=== PATIENT | female | born 1940 | race Caucasian/White ===

== ENCOUNTER 2025-07-31 09:21 | Inpatient (IN) ==
--- NOTE | 2025-07-31 09:24 | Emergency Department Note ---
Impression & Plan Narrow complex tachycardia, Hypomagnesemia, Recurrent left pleural effusion, Hypocalcemia, Hypoxia ED Provider Note NAME: DASHA WHITFIELD AGE: 85 SEX: F : 1940 ARRIVES VIA: Ambulance INFORMANT: Patient, ED PROVIDER(S): Ramos Busch MD CHIEF COMPLAINT: Outpatient referral, low calcium MEDICAL DECISION MAKING: Patient presents for the above. Patient with a narrow complex tachycardia noted. Patient is hypotensive but is awake alert following commands. Reportedly critically low calcium. Did attempt to obtain the records. I also did send the patient's EKG to the on-call leather roller Dr. Manning for review and discussion especially in light of the patient's lower calcium. I did speak with the leather roller Dr. Kerri Red who did recommend 2.5 Lopressor in addition to the calcium and IV fluids. Patient's blood work shows a normal white count hemoglobin of 10.9 with a normal platelet count. The patient's kidney function is unremarkable. Initial potassium of 3.4. Patient's calcium is low at 6.3. The patient was ordered 3 g of calcium gluconate. Magnesium low 0.6. She was ordered 2 g IV. The patient never actually received the Lopressor but did have improvement in the patient's tachycardia repeat EKG was ordered which showed the patient was in a sinus tachycardia in the low 100s. Patient did receive the IV fluids. Chest x-ray does show left-sided pleural effusion. I did discuss this with the patient and the patient's at bedside he states that this is a chronic issue and last had it drained head is pending having it drained at [facility] in several weeks. I did attempt a bedside ultrasound. Poor views obtained no obvious pericardial effusion but the patient did have B-lines in the left lung field. I subsequently did speak the on-call hospital service and the patient was admitted to the medicine service by Dr. Pacheco inpatient medicine service. Critical Care: I have personally spent 65 minutes of critical care time in direct management of this patient. This includes bedside care, interpretation of diagnostic studies, and testing, discussion with consultants, patient, and family members, and other require inpatient management activities. This 65 minutes is in excess of all separately billable procedures. Discussion w/ other healthcare providers: Dr. Manning cardiology [facility] Dr. Pacheco inpatient medicine service Prior /Outside records reviewed: None Differential diagnosis: Premature contractions, electrolyte abnormality, cardiac dysrhythmia, thyroid dysfunction, infection, toxicologic, anxiety among others were considered. Diagnostics, as interpreted by me: ECG: [Narrow complex tachycardia PVC noted, appears monomorphic and regular could be A-fib versus atrial flutter. Ventricular rate of 180. Normal QRS duration within normal axis. Normal QTc Cardiac monitoring: An order was placed for continuous cardiac monitoring. The monitor shows a rate of 182 with tachycardic and regular rhythm. Patient was placed on pulse oximetry Medical decision rules: None Imaging studies: I informally interpreted the patient's chest x-ray shows left-sided pleural effusion with formal report to follow. HPI: Patient presents as a referral due to concern for critically low calcium. The patient states that she was sleeping they were called by the doctor and they were referred to come to the emergency department. Patient denies any chest pains or shortness of breath reportedly does have cough that has been nonproductive. Patient currently denies any symptoms no nausea vomiting or diarrhea no dizziness or lightheadedness no chest pains or shortness of breath. The patient denies feeling palpitations and denies any history of A-fib. PAST MEDICAL HISTORY: See Below PAST SURGICAL HISTORY: See Below SOCIAL HISTORY: See Below HOME MEDICATIONS: See Below ALLERGIES: See Below VITALS: See Below PHYSICAL EXAMINATION: GENERAL: NAD, non-toxic. EYE EXAM: Normal conjunctiva. PERRL, no anisocoria and EOM's grossly intact w/o pain. OROPHARYNX: Moist mucus membranes, grossly normal dentition. NECK: Trachea midline, no stridor. Supple, no nuchal rigidity, no adenopathy, non-tender. No signs of meningismus. FROM of the neck with good chin to chest and neck extension. LUNGS: Rhonchi in the right chest. Normal chest wall mechanics. HEART: Tachycardic and regular, no MRG. ABDOMEN: Abdomen soft, non-tender, no masses, no rebound or guarding. BACK: No CVA TTP. SKIN: No rashes and no bruising. UPPER EXTREMITIES: Upper extremities are grossly normal. LOWER EXTREMITIES: Grossly normal, no edema. NEURO EXAM: Awake and alert, follows commands, no obvious facial asymmetry, normal speech, moves all 4 extremities. Past Med/Surg History Problem List (Updated 07/31/25 @ 16:31 by Ramos Busch MD) Hypoxia (Acute) Narrow complex tachycardia (Acute) Recurrent left pleural effusion (Acute) Hypomagnesemia (Acute) SVT (supraventricular tachycardia) Hypocalcemia (Acute) Medical History GERD (gastroesophageal reflux disease) Surgical History History of lysis of adhesions (2007) Hx of section (1976) Hx of exploratory laparotomy (1976) Hx of appendectomy (1950) Social History Smoking Status: Former smoker Tobacco Type: Declines Second Hand Exposure: No; Do You Dip or Chew Tobacco: No; Hx Alcohol Use: No Hx Substance Use: No Preferred Language: Faroese Communication Ability: Effective Associate Professor Of Anthropology Required: No Beliefs That Will Affect Care: None Current Living Situation: Spouse Feels Safe at Home: Yes Assistive Devices: Denture - Upper and Denture - Lower Allergies Allergies Allergy/AdvReac Type Severity Reaction Status Date / Time No Known Allergies Allergy Unknown Verified 08/02/24 14:19 Home Meds Home Medications Medication Instructions Recorded Confirmed omeprazole 20 mg capsule,delayed 40 mg PO BID 07/26/24 07/31/25 release sucralfate 1 gram tablet 0 g PO ACHS 08/02/24 07/31/25 amlodipine 5 mg tablet 5 mg PO DAILY 07/31/25 07/31/25 atorvastatin 40 mg tablet 40 mg PO DAILY 07/31/25 07/31/25 ferrous sulfate 325 mg (65 mg 325 mg PO .Q OTHER DAY 07/31/25 07/31/25 iron) tablet (FeroSul) mirtazapine 15 mg tablet 15 mg PO DAILY 07/31/25 07/31/25 Results & Data (ED) Vital Signs Vital Signs - 24 hr 07/31/25 09:42 07/31/25 09:47 07/31/25 09:58 Temperature 36.4 C L Temperature Source Oral Pulse Rate 180 H 181 H Pulse Rate [Finger] Pulse Rate from SpO2 Sensor 180 H Respiratory Rate 27 H 16 Respiratory Effort / Characteristics Non-Labored Respiratory Depth Normal Respiratory Pattern Regular Blood Pressure 122/89 87/70 L 91/78 L Blood Pressure [Right Arm] Blood Pressure Mean 100 75 86 Blood Pressure Mean [Right Arm] Pulse Oximetry 94 89 L Oxygen Delivery Method Nasal Cannula Room Air Oxygen Flow Rate 2 Sepsis Recent Fever Within 48 Hours No Sepsis New/Unexplained Change in Mental Status N/A Sepsis Action Taken by Nursing Physician Notified 07/31/25 10:00 07/31/25 10:02 07/31/25 10:03 Temperature Temperature Source Pulse Rate 179 H 180 H Pulse Rate [Finger] Pulse Rate from SpO2 Sensor 178 H 157 H Respiratory Rate 29 H 22 Respiratory Effort / Characteristics Respiratory Depth Respiratory Pattern Blood Pressure 68/51 L 58/40 L 92/49 L Blood Pressure [Right Arm] Blood Pressure Mean 56 48 63 Blood Pressure Mean [Right Arm] Pulse Oximetry 95 93 Oxygen Delivery Method Nasal Cannula Nasal Cannula Oxygen Flow Rate 2 2 Sepsis Recent Fever Within 48 Hours Sepsis New/Unexplained Change in Mental Status Sepsis Action Taken by Nursing 07/31/25 10:06 07/31/25 10:08 07/31/25 10:24 Temperature Temperature Source Pulse Rate 110 H Pulse Rate [Finger] Pulse Rate from SpO2 Sensor Respiratory Rate Respiratory Effort / Characteristics Respiratory Depth Respiratory Pattern Blood Pressure 80/51 L 105/69 105/69 Blood Pressure [Right Arm] Blood Pressure Mean 55 84 Blood Pressure Mean [Right Arm] Pulse Oximetry Oxygen Delivery Method Oxygen Flow Rate Sepsis Recent Fever Within 48 Hours Sepsis New/Unexplained Change in Mental Status Sepsis Action Taken by Nursing 07/31/25 10:27 07/31/25 10:33 07/31/25 12:00 Temperature Temperature Source Pulse Rate 113 H 179 H Pulse Rate [Finger] 86 Pulse Rate from SpO2 Sensor 103 H Respiratory Rate 29 H 18 Respiratory Effort / Characteristics Respiratory Depth Respiratory Pattern Blood Pressure 120/80 Blood Pressure [Right Arm] 103/62 Blood Pressure Mean 93 Blood Pressure Mean [Right Arm] 75 Pulse Oximetry 96 95 Oxygen Delivery Method Nasal Cannula Nasal Cannula Oxygen Flow Rate 2 2 Sepsis Recent Fever Within 48 Hours Sepsis New/Unexplained Change in Mental Status Sepsis Action Taken by [facility] Medications Current Medication List: was personally reviewed by me Laboratory Data Attestation: I reviewed the patient's lab results. 07/31/25 09:33 07/31/25 14:26 Lab Results 07/31/25 07/31/25 07/31/25 Range/Units 09:33 09:39 09:40 WBC 10.11 (4.8-10.8) K/ul RBC 4.30 (4.20-5.40) M/uL Hgb 10.9 L (12.0-16.0) g/dl POC Hgb 11.9 L (12.0-16.0) g/dl Hct 34.2 L (37.0-47.0) % POC Hct 35 L (37-47) % MCV 79.5 L (80.0-100.0) fL MCH 25.3 (25.0-34.0) pg MCHC 31.9 L (32.0-36.0) g/dL RDW Std Deviation 52.7 H (36.4-46.3) fL RDW Coeff of Nico 18.6 H (11.5-14.5) % Plt Count 271 (130-400) K/uL MPV 12.4 (9.4-12.4) fL Immature Gran % (Auto) 0.3 % Neut % (Auto) 50.7 % Lymph % (Auto) 37.0 % [place] % (Auto) 4.9 % Eos % (Auto) 6.7 % Baso % (Auto) 0.4 % Neut # (Auto) 5.12 (1.40-6.50) K/uL Lymph # (Auto) 3.74 H (1.20-3.40) K/uL [place] # (Auto) 0.50 (0.11-0.59) K/uL Eos # (Auto) 0.68 H (0.00-0.50) K/uL Baso # (Auto) 0.04 (0.00-0.20) K/uL Immature Gran # (Auto) 0.03 (0.01-0.20) K/uL PT 13.0 H (9.0-12.0) Seconds INR 1.2 H (0.9-1.1) APTT 31 (21-31) Seconds PTT Ratio 1.1 POC Sodium 141 (135-144) mmol/L Sodium 141 (136-145) mmol/L POC Potassium 3.2 L (3.3-5.0) mmol/L Potassium 3.4 L (3.5-5.1) mmol/L POC Chloride 103 (101-112) mmol/L Chloride 102 (98-107) mmol/L Carbon Dioxide 25 (21-32) mmol/L POC Total CO2 22 L (24-31) mmol/L Anion Gap 14 H (3-11) POC Anion Gap 20.0 (16-25) mmol/L POC BUN 17 (7-18) mg/dl BUN 17 (6-23) mg/dl Creatinine 1.30 H (0.6-1.2) mg/dl POC Creatinine 1.5 H (0.6-1.3) mg/dl Est Cr Clr Drug Dosing 26.2 ml/min eGFR 40.05 BUN/Creatinine Ratio 13.1 (10-20) Glucose 160 H (70-99(Fasting)) mg/dl POC Glucose (other) 161 H (70-99) mg/dl Calcium 6.3 L (8.6-10.3) mg/dl POC Ioniz Calcium Tiffany 0.66 L* (1.12-1.32) mmol/l Ionized Calcium 0.68 L* (1.12-1.32) mmol/L Phosphorus 3.8 (2.5-4.9) mg/dl Magnesium 0.6 L* (1.7-2.4) mg/dl Total Bilirubin 0.7 (0.2-1.0) mg/dl AST 19 (13-39) U/L ALT 6 L (7-52) U/L Alkaline Phosphatase 121 H (34-104) U/L Troponin I High Sens 13.4 (0-14) pg/ml Total Protein 7.6 (6.0-8.3) gm/dl Albumin 3.4 (3.4-5.0) gm/dl Globulin 4.2 H (2.5-4.0) gm/dl Albumin/Globulin Ratio 0.8 L (0.9-2) TSH 12.323 H (0.300-4.500) uIu/ml Free T4 1.27 (0.61-1.60) ng/dl Adenovirus (PCR) Not Detected (NotDetected) B. pertussis DNA (PCR) Not Detected (NotDetected) B.parapertussis DNA PCR Not Detected (NotDetected) C. pneumoniae DNA (PCR) Not Detected (NotDetected) Coronavirus OC43 (PCR) Not Detected (NotDetected) Coronavirus HKU1 (PCR) Not Detected (NotDetected) Coronavirus 229E (PCR) Not Detected (NotDetected) SARS-CoV-2 (PCR) Not Detected (NotDetected) Coronavirus NL63 (PCR) Not Detected (NotDetected) Human Metapneumovir PCR Not Detected (NotDetected) Influenza Type A (PCR) Not Detected (NotDetected) Influenza Type B (PCR) Not Detected (NotDetected) M. pneumoniae (PCR) Not Detected (NotDetected) Parainfluenza 1 (PCR) Not Detected (NotDetected) Parainfluenza 2 (PCR) Not Detected (NotDetected) Parainfluenza 3 (PCR) Not Detected (NotDetected) Parainfluenza 4 (PCR) Not Detected (NotDetected) RSV (PCR) Not Detected (NotDetected) Entero/Rhino (PCR) Not Detected (NotDetected) Administered Medications Calcium Carbonate (Calcium Carbonate 500 Mg Chewable Tab) 1,000 mg PO BID [facility] Stop: 08/30/25 12:14 Last Admin: 07/31/25 13:09 Dose: 1,000 mg Documented By: BEAR RIVER Ferrous Sulfate (Ferrous Sulfate 325 Mg Tab) 325 mg PO Q2D@0900 CHENTE Stop: 08/30/25 14:44 Last Admin: 07/31/25 15:19 Dose: 325 mg Documented By: emily Multivitamins/Minerals (Cerovite Adv Formula Tab) 1 tab PO QAM CHENTE Stop: 08/30/25 12:14 Last Admin: 07/31/25 13:10 Dose: 1 tab Documented By: BEAR RIVER Discontinued Medications Calcium Gluconate () 1,000 mg in 60 mls @ 240 mls/hr IV NOW STA Stop: 07/31/25 10:00 Last Infusion: 07/31/25 10:44 Dose: Infused Documented By: emily Admin: 07/31/25 10:25 Dose: 240 mls/hr Documented By: emily Calcium Gluconate () 1,000 mg in 60 mls @ 240 mls/hr IV Q15M CHENTE Stop: 07/31/25 10:29 Last Infusion: 07/31/25 10:54 Dose: Infused Documented By: emily Admin: 07/31/25 10:34 Dose: 240 mls/hr Documented By: emily Infusion: 07/31/25 10:34 Dose: Infused Documented By: emily Admin: 07/31/25 10:31 Dose: 240 mls/hr Documented By: emily Sodium Chloride (Nss) 500 mls @ 999 mls/hr IV .Q31M ONE Stop: 07/31/25 10:16 Last Infusion: 07/31/25 11:42 Dose: Infused Documented By: emily Admin: 07/31/25 10:04 Dose: 999 mls/hr Documented By: emily Magnesium Sulfate/Dextrose (Magnesium Sulfate / D5w) 1 gm in 100 mls @ 200 mls/hr IV Q30M CHENTE Stop: 07/31/25 11:16 Last Infusion: 07/31/25 12:19 Dose: Infused Documented By: emily Admin: 07/31/25 11:48 Dose: 200 mls/hr Documented By: emily Infusion: 07/31/25 11:42 Dose: Infused Documented By: emily Admin: 07/31/25 10:31 Dose: 200 mls/hr Documented By: emily Metoprolol Tartrate (Metoprolol Tartrate 1 Mg/Ml Vial) 2.5 mg IV NOW STA Stop: 07/31/25 09:47 Last Admin: 07/31/25 10:24 Dose: Not Given Documented By: emily Metoprolol Tartrate (Metoprolol Tartrate 25 Mg Tab) 12.5 mg PO ONE ONE Stop: 07/31/25 14:46 Last Admin: 07/31/25 15:19 Dose: 12.5 mg Documented By: emily Potassium Chloride (Potassium Chloride Crtab 20 Meq Tabcr) 40 meq PO NOW STA Stop: 07/31/25 12:10 Last Admin: 07/31/25 13:11 Dose: 40 meq Documented By: BEAR RIVER Imaging Data Radiologist's Impression: Chest X-Ray 07/31/25 09:36 XR chest 1V portable CLINICAL HISTORY: eval for cough COMPARISON STUDY: 03/29/2025 FINDINGS: There is stable cardiomegaly with mild pulmonary vascular congestion. There is a moderate to large left pleural effusion and associated consolidation at the left lower lung, increased. Right lung remains well aerated. No pneumothorax. IMPRESSION: Increased left pleural effusion and left pulmonary consolidation. ACT 112: Negative or not required by law. Electronically signed by: Tiago Vyas M.D. 07/31/2025 10:00 AM Discharge Plan Visit Data Chief Complaint: Abnormal Labs/Diagnostic Testing Stated Complaint: Abnormal Labs/Diagnostic Testing ED Provider: Ramos Busch Discharge Problem: Narrow complex tachycardia, Hypomagnesemia, Recurrent left pleural effusion, Hypocalcemia, Hypoxia Patient Disposition: Admitted As Inpatient Condition: Good Discharge Instructions Interventions: ED Discharge Assessment Last Done: 07/31/25 14:26
[2025-07-31 09:53] LABS: Hematocrit (blood only) 34.2 % (37.0-47.0); Hemoglobin 10.9 g/dl (12.0-16.0); Immature Granulocytes # (auto) 0.03 K/uL (0.01-0.20); Immature Granulocytes % (auto) 0.3 %; Mean Corpuscular Hemoglobin 25.3 pg (25.0-34.0); Mean Corpuscular Volume 79.5 fL (80.0-100.0); Platelet Count 271 K/uL (130-400); RDW Standard Deviation 52.7 fL (36.4-46.3); Red Blood Count 4.30 M/uL (4.20-5.40); White Blood Count 10.11 K/ul (4.8-10.8)
[2025-07-31] MEDS: METOPROLOL TARTRATE 1 MG/ML VIAL IV STA (09:57)
--- NOTE | 2025-07-31 10:03 | XRay Report ---
XR chest 1V portable CLINICAL HISTORY: eval for cough COMPARISON STUDY: 03/29/2025 FINDINGS: There is stable cardiomegaly with mild pulmonary vascular congestion. There is a moderate t o large left pleural effusion and associated consolidation at the left lower lung, increased. Right l lona remains well aerated. No pneumothorax. IMPRESSION: Increased left pleural effusion and left pulmonary consolidation. ACT 112: Negative or not required by law. Electronically signed by: Tiago Vyas M.D. 07/31/2025 10:00 AM
[2025-07-31] MEDS: SODIUM CHLORIDE 0.9% 500 ML IV ONE (10:04)
[2025-07-31 10:09] LABS: Anion Gap 14.0 (3-11); Blood Urea Nitrogen 17.0 mg/dl (6-23); Calcium 6.3 mg/dl (8.6-10.3); Carbon Dioxide 25.0 mmol/L (21-32); Chloride 102.0 mmol/L (98-107); Creatinine Clr Calc Pharmacy 26.2 ml/min; Glucose 160.0 mg/dl (70-99(Fasting)); Potassium 3.4 mmol/L (3.5-5.1); Sodium 141.0 mmol/L (136-145)
[2025-07-31 10:16] LABS: Alanine Aminotransferase 6.0 U/L (7-52); Albumin Globulin Ratio 0.8 (0.9-2); Albumin Level 3.4 gm/dl (3.4-5.0); Alkaline Phosphatase 121.0 U/L (34-104); Bilirubin,Total 0.7 mg/dl (0.2-1.0); Globulin 4.2 gm/dl (2.5-4.0); Magnesium 0.6 mg/dl (1.7-2.4); Total Protein 7.6 gm/dl (6.0-8.3)
[2025-07-31 10:24] LABS: INR 1.2 (0.9-1.1); Partial Thromboplastin Time 31 Seconds (21-31); Prothrombin Time 13.0 Seconds (9.0-12.0)
[2025-07-31 10:25] LABS: Thyroid Stimulating Hormone 12.323 uIu/ml (0.300-4.500)
[2025-07-31] MEDS: CALCIUM GLUCONATE 1,000 MG/60 ML BAG IV STA ×2 (10:25→23:49)
[2025-07-31] MEDS: MAGNESIUM SULFATE / D5W 1 GM/100 ML BAG IV SCH (10:31)
[2025-07-31] MEDS: CALCIUM GLUCONATE 1,000 MG/60 ML BAG IV SCH (10:31)
[2025-07-31 10:50] LABS: Chlamydia pneumoniae PCR Not Detected (NotDetected); Coronavirus 229E PCR Not Detected (NotDetected); Coronavirus CoV-2 (COVID19)PCR Not Detected (NotDetected); Coronavirus HKU1 PCR Not Detected (NotDetected); Coronavirus NL63 PCR Not Detected (NotDetected); Coronavirus OC43PCR Not Detected (NotDetected); Human Metapneumovirus PCR Not Detected (NotDetected); Parainfluenza Virus 1 PCR Not Detected (NotDetected); Parainfluenza Virus 2 PCR Not Detected (NotDetected); Parainfluenza Virus 3 PCR Not Detected (NotDetected); Parainfluenza Virus 4 PCR Not Detected (NotDetected); Respiratory Syncytial VirusPCR Not Detected (NotDetected); Rhinovirus/Enterovirus PCR Not Detected (NotDetected)
[2025-07-31 11:00] LABS: T4 Free Thyroxine 1.27 ng/dl (0.61-1.60)
--- NOTE | 2025-07-31 12:12 | History & Physical Report ---
Date of Service July 31, 2025 Assessment & Plan (1) Hypocalcemia: Plan Narrow complex tachycardia, PVCs Rule out A-fib versus atrial flutter Patient presented for low calcium level, noted to be an elevated heart rate up to 180s. Patient also noted to have very low calcium and subclinical hypothyroidism Patient also noted to have large left pleural effusion and mild pulmonary vascular congestion. Patient does have a history of left atrial dilatation per outpatient chart review. Patient with elevated heart rate and low blood pressure at presentation Status post 3 g IV calcium gluconate and half liter normal saline in the ED, heart rate improved to 90s, blood pressure improved to normal. Continue telemonitoring, can use as needed IV metoprolol if HR elevated. Cardiology consult, echo. Given elevated TSH and lethargic affect, will start low-dose levothyroxine in light of her elderly age. Left pleural effusion: Patient reports usual cough, no increasing cough or sputum production. WBC WNL, afebrile, Respiratory pathogen panel negative. Patient had fluid tapped on the left in May 2025, next visit scheduled for August 13. Will likely need IR eval/tapping while in the hospital, await echo and further hemodynamic and electrolyte stability today. Electrolyte abnormalities: Hypokalemia, hypomagnesemia, hypocalcemia Potassium of 3.4, magnesium of 0.6, ionized calcium 0.66 at presentation. Outpatient chart review with calcium of 9.2 on 04/16/2025 and 7.1 on 07/11/2025 and 5.8 on 07/30/25 Likely in the setting of poor appetite & resulting hypomagnesemia. No significant medication changes in the last few months per patient. No chemotherapy. Will get PTH, vitamin D level, give PO KCL 40 meq, tums bid. Status post 3 g calcium gluconate and 2 g magnesium in the ED. Repeat calcium and magnesium and BMP level at around 2 PM. Further electrolyte replacement based on test. Subclinical hypothyroidism: TSH elevated at 12.32, free T4 normal at 1.27. P atient tired and lethargic at baseline. Restarted low-dose 25 mcg daily of levothyroxine given elderly age and risk for arrhythmia, pt /her has been explained. Continue to monitor over telemetry. repeat thyroid function test in 6 weeks time. Follow-up with primary care physician for ongoing/long- term monitoring or management. Malnutrition: Patient reports she had a poor appetite even prior to her August 2024 colon surgery, it has become even worse since then. Weight has been around 57 kg in July 2024, down to 53 kg this admission. Dietitian consult, encourage protein intake, daily multivitamins. Continue home Remeron Other chronic medical conditions: GERD, HTN, HLD -- Continue/resume home meds as when able. Hold amlod given low BP at presentation, re-eval in AM to resume. DVT prophylaxis: SCDs for now, given possibility for left IR tap patient clinical assessment in AM. Full code History of Present Illness Chief Complaint: Low calcium level Primary Care Provider: Lele Giron MD 85-year-old lady with PMH of multiple thyroid nodules, HLD, lung granuloma, left pleural effusion, CAD, HTN, left atrial dilatation, CKD stage IIIb, SNHL, anemia due to stage III CKD, colon cancer status post resection and stoma creation followed by reversal ( stage II cancer, needed no chemo and radiation per pt] presents today via referral of outpatient office for note of low calcium level in the outpatient blood lab. Patient was noted to be in narrow complex tachy with heart rate in 180s at presentation, improved to sinus rhythm with heart rate in 90s with IV fluid and did not need metoprolol at ED. ER physician was endorsed with cardiology. Patient reports in general her appetite is poor and has been even poorer since her colon cancer surgery in August 2024. patient denies any diarrhea or loose stools. Patient reports she has recently been started on Remeron which has been helping her slat pickler some appetite. Patient denies fever, reports usual cough/no mucus, denies sore throat/chest pain/palpitation. Patient reports no acute changes in her bowel or bladder habit. Patient does not use oxygen at home. Patient does report shortness of breath with exertion since colon cancer surgery. Patient reports she follows with pulmonology as an outpatient for left-sided pleural effusion, she states she underwent pleural tap in May 2025 and it was negative for cancer, since it reaccumulated they had another pleural tap scheduled for August 14. Patient denies any other medication changes. Patient reports quitting smoking 2014, denies alcohol and recreational drug use. Medications reviewed with the patient and her at bedside. Plan of care discussed with them in detail, they voiced understanding and agreeable to plan of care. Full code Allergies Allergy/AdvReac Type Severity Reaction Status Date / Time No Known Allergies Allergy Unknown Verified 08/02/24 14:19 Home Medications Medication Instructions Recorded Confirmed Type omeprazole 20 mg capsule,delayed 40 mg PO BID 07/26/24 07/31/25 History release sucralfate 1 gram tablet 0 g PO ACHS 08/02/24 07/31/25 History amlodipine 5 mg tablet 5 mg PO DAILY 07/31/25 07/31/25 History atorvastatin 40 mg tablet 40 mg PO DAILY 07/31/25 07/31/25 History ferrous sulfate 325 mg (65 mg 325 mg PO .Q OTHER DAY 07/31/25 07/31/25 History iron) tablet (FeroSul) mirtazapine 15 mg tablet 15 mg PO DAILY 07/31/25 07/31/25 History Past Med/Surg History Problem List (Updated 07/31/25 @ 12:25 by Maggie Pacheco MD) Hypocalcemia Medical History GERD (gastroesophageal reflux disease) Surgical History History of lysis of adhesions (2007) Hx of section (1976) Hx of exploratory laparotomy (1976) Hx of appendectomy (1950) Social History Smoking Status: Former smoker Tobacco Type: Declines Second Hand Exposure: No; Do You Dip or Chew Tobacco: No; Hx Alcohol Use: No Hx Substance Use: No Preferred Language: Georgian Communication Ability: Effective Engineering Faculty Member Required: No Beliefs That Will Affect Care: None Current Living Situation: Spouse Feels Safe at Home: Yes Assistive Devices: Denture - Upper and Denture - Lower Review of Systems Review of Systems: Negative otherwise mentioned in HPI. Physical Exam Physical Exam: GENERAL: Alert and oriented x3. NAD, on 2L NC O2, lean, thin, appears chronically ill/frail HEENT: No pallor, no icterus. Pupils equal, round and reactive to light. Oral mucosa dry. NECK: No JVD, no neck masses. HEART: S1 and S2 heard. Regular rate and rhythm. HR in 90s. No murmur, no gallop. RESPIRATORY SYSTEM: Normal AP diameter. No accessory muscle use. No wheezing, no crackles. decreased breath sounds Lt mid and lower lobes. ABDOMEN: Soft, bowel sounds present, nontender, no distention. very well healed old surgical scar noted. CENTRAL NERVOUS SYSTEM: No facial droop. Speech is clear. Obeys simple commands. Moves extremities. EXTREMITIES: No edema, no erythema seen. Results & Data Results & Data Vital Signs (Past 12 Hours) Vital Signs Temp Pulse Resp BP Pulse Ox O2 Del Method O2 Flow Rate 07/31/25 10:33 179 H 07/31/25 10:27 113 H 29 H 120/80 96 Nasal Cannula 2 07/31/25 10:24 110 H 105/69 07/31/25 10:08 105/69 07/31/25 10:06 80/51 L 07/31/25 10:03 180 H 22 92/49 L 93 Nasal Cannula 2 07/31/25 10:02 58/40 L 07/31/25 10:00 179 H 29 H 68/51 L 95 Nasal Cannula 2 07/31/25 09:58 91/78 L 07/31/25 09:47 36.4 C L 181 H 16 87/70 L 89 L Room Air 07/31/25 09:42 180 H 27 H 122/89 94 Nasal Cannula 2
[2025-07-31] MEDS ORDERED: POLYETHYLENE (MIRALAX) 17 GM PACK PO PRN (12:14)
[2025-07-31] MEDS ORDERED: ACETAMINOPHEN 325 MG TAB PO PRN (12:14)
[2025-07-31] MEDS ORDERED: ALUMINUM/MAGNESIUM SUSP 30 ML UDC PO PRN (12:14)
[2025-07-31] MEDS ORDERED: METOPROLOL TARTRATE 1 MG/ML VIAL IV PRN (12:54)
[2025-07-31] MEDS ORDERED: METOPROLOL TARTRATE 25 MG TAB PO SCH (13:00)
[2025-07-31] MEDS: CALCIUM CARBONATE 500 MG CHEWABLE TAB PO SCH (13:09)
[2025-07-31] MEDS: CEROVITE ADV FORMULA TAB PO SCH (13:10)
[2025-07-31] MEDS: POTASSIUM CHLORIDE CRTAB 20 MEQ TABCR PO STA (13:11)
--- NOTE | 2025-07-31 14:49 | Nephrology Consultation ---
Date of Consultation July 31, 2025 Assessment & Plan (1) Hypocalcemia: critical hypocalcemia w/ SVT on presentation w/ presenting iCa 0.7. 25OH D 27 PTH 77 s/p 3 gm IV calcium w/ improvement to 0.9 gm Likeliest cause is PTH deficiency from critical hypomagnesemia. PTH is inappropriately suppressed No need at this time to check PHTrp or 1,25 dihydroxy D -repeat BMP, mag this evening as well as in AM (2) Hypomagnesemia: her mag corrected suspiciously fast >> unlikely that 2 gm IV would bring this up to supratherapeutic level of 3.2 (? if drawn while mag running) potential cause is PPI use, though again hypomagnesemia to this degree is unexpected w/ PPI alone no CTX w/ recent colon cancer >repeat mag ordered (3) Recurrent left pleural effusion: consider thoracentesis and cytology/cellcount/fluid analysis as IP or OP (4) SVT (supraventricular tachycardia): continue cardiac monitoring; History of Present Illness Reason for Consultation: electrolyte abnormalities Requesting Physician: Dr Pacheco Attending Physician: Maggie Pacheco MD History of Present Illness 85 y/o F whom I'm asked to see for electrolyte abnormalities was admitted today after PCP sent her to ED for critically low calcium despite efforts to replete. On arrival, calcium 6.3 (0.7 iCa) and mag noted to be 0.6. PMH includes colon CA s/p L hemicolectomy 08/2024 w/o XRT or CTX with 07/09/2025 PET showing abdominal FDG-avid lesion in area of colorectal anastamosis, L pleural effusion s/p 05/2025 thoracentesis (w/ 3.9 gm protein and negative cytology and reaccumulation noted on PET one month later), 13% body weight loss in past 11 months (from 133 lb to 118 in [facility]), CKD 3B despite weight loss w/ creatinine baseline 1.2-1.4, HTN, HL, moderate mitral stenosis, dementia, reformed tobacco user per OP charts, CT findings 07/2024 c/w emphysema and w/ multiple lung nodules and BL pleural effusions, per depression. EGD 07/2024 w/ moderate stenosis and (on biopsy) severe inflammation at [place] and chronic gastritis. Also w/ chronic ambulatory dysfunction > ambulates w/ cane. On arrival to ED, noted to have asx HR in 180s w/ ECG/tele strips supporting SVT, spontaneously resolved. Started on Metoprolol tartrate 12.5 mg BID and it resolved spontanteously. Did have another short episode also asymptomatic. Had 3 gm IV Ca and 2 gm IV mag as well as 1/2 L NS. and daughter are at bedside. gives most of history. he tells me she's had no falls; + mild and stable exertional dyspnea, no orthopnea. no n/v; no musculoskeletal or abdominal pain; no palpitations; no chest pain; no edema; no f/c. no new medications recently. no therapies for osteoporosis. her was later admitted this evening after a fall. Allergies Allergy/AdvReac Type Severity Reaction Status Date / Time No Known Allergies Allergy Unknown Verified 08/02/24 14:19 Home Medications Medication Instructions Recorded Confirmed Type omeprazole 20 mg capsule,delayed 40 mg PO BID 07/26/24 07/31/25 History release sucralfate 1 gram tablet 0 g PO ACHS 08/02/24 07/31/25 History amlodipine 5 mg tablet 5 mg PO DAILY 07/31/25 07/31/25 History atorvastatin 40 mg tablet 40 mg PO DAILY 07/31/25 07/31/25 History ferrous sulfate 325 mg (65 mg 325 mg PO .Q OTHER DAY 07/31/25 07/31/25 History iron) tablet (FeroSul) mirtazapine 15 mg tablet 15 mg PO DAILY 07/31/25 07/31/25 History Patient History Medical History GERD (gastroesophageal reflux disease) Surgical History History of lysis of adhesions (2007) Hx of section (1976) Hx of exploratory laparotomy (1976) Hx of appendectomy (1950) Social History Smoking Status: Former smoker Tobacco Type: Declines Second Hand Exposure: No; Do You Dip or Chew Tobacco: No; Hx Alcohol Use: No Hx Substance Use: No Preferred Language: Amharic Communication Ability: Effective Senior Commissions Analyst Required: No Beliefs That Will Affect Care: None Current Living Situation: Spouse Feels Safe at Home: Yes Assistive Devices: Denture - Upper and Denture - Lower Review of Systems 2 Review of Systems: All systems reviewed & are unremarkable except as noted in HPI & below Physical Exam 2 Constitutional: well developed, + thin, + frail appearing and cooperative; no acute distress Eyes: EOM intact bilaterally ENMT: Mouth: + dry oral mucous membranes Respiratory: normal respiratory effort Auscultation: + diminished lung sounds Gastrointestinal (Abdomen): Inspection/Auscultation: normal bowel sounds P ercussion/Palpation: abdomen soft; abdomen nontender Musculoskeletal: Extremities: strength 5/5 throughout Skin: no rashes, warm and dry Neurologic: hickey, fluent speech, no tremor Results & Data Vital Signs (Past 12 Hours) Vital Signs Temp Pulse Pulse Resp BP BP Pulse Ox 07/31/25 12:00 86 18 103/62 95 07/31/25 10:33 179 H 07/31/25 10:27 113 H 29 H 120/80 96 07/31/25 10:24 110 H 105/69 07/31/25 10:08 105/69 07/31/25 10:06 80/51 L 07/31/25 10:03 180 H 22 92/49 L 93 07/31/25 10:02 58/40 L 07/31/25 10:00 179 H 29 H 68/51 L 95 07/31/25 09:58 91/78 L 07/31/25 09:47 36.4 C L 181 H 16 87/70 L 89 L 07/31/25 09:42 180 H 27 H 122/89 94 O2 Del Method O2 Flow Rate 07/31/25 12:00 Nasal Cannula 2 07/31/25 10:33 07/31/25 10:27 Nasal Cannula 2 07/31/25 10:24 07/31/25 10:08 07/31/25 10:06 07/31/25 10:03 Nasal Cannula 2 07/31/25 10:02 07/31/25 10:00 Nasal Cannula 2 07/31/25 09:58 07/31/25 09:47 Room Air 07/31/25 09:42 Nasal Cannula 2 Laboratory Results 07/31/25 09:33 07/31/25 09:33 07/31/25 14:26 f/u mag 3.2; f/u iCa 0.9 TSH 12.3 25OH D 27 PTH 77 Diagnostic Findings cxr > large L pleural effusion/ consolidation
[2025-07-31 15:07] LABS: Anion Gap 10.0 (3-11); Blood Urea Nitrogen 16.0 mg/dl (6-23); Calcium 6.8 mg/dl (8.6-10.3); Carbon Dioxide 27.0 mmol/L (21-32); Chloride 101.0 mmol/L (98-107); Creatinine Clr Calc Pharmacy 29.4 ml/min; Glucose 131.0 mg/dl (70-99(Fasting)); Potassium 3.6 mmol/L (3.5-5.1); Sodium 138.0 mmol/L (136-145)
[2025-07-31] MEDS: METOPROLOL TARTRATE 25 MG TAB PO ONE (15:19)
[2025-07-31] MEDS: FERROUS SULFATE 325 MG TAB PO SCH (15:19)
--- NOTE | 2025-07-31 15:51 | Cardiology Consultation ---
Date of Consultation July 31, 2025 Assessment & Plan (1) SVT (supraventricular tachycardia): (2) Hypomagnesemia: (3) Hypocalcemia: (4) Recurrent left pleural effusion: Plan Patient is an 85 year old female who was admitted to [facility] for electrolyte disturbances and found to have narrow complex tachycardia in the 180's suggestive of SVT. She was asymptomatic. Duration unknown, but likely caused by severe electrolyte imbalances. Narrow complex tachycardia, probable SVT given rate and spontaneous conversion on telemetry. -started on metoprolol tartrate 12.5 mg BID -Replace electrolytes -Patient was asymptomatic -HS troponin negative x1 -Echo results pending -It is possible this narrow complex atrial arrhythmia was 2:1 atrial flutter, but difficult to determine due to rate. -At this point, would not recommend initiation of anticoagulation Hypomag and Hypocalc -Nephrology consulted -supplement as tolerated -Patient reports poor PO intake of food/nutrition for several months, possibly contributing Large left pleural effusion -s/p thoracentesis in Sept -Scheduled for repeat thoracentesis as an outpatient on 08/14, but may benefit from having done here -Prior pleural fluid analysis was without malignancy per notes in EPIC -Given her severe electrolyte disturbances, would avoid diuretics at this time -Etiology of recurrent pleural effusion uncertain, but she does have moderate mitral stenosis and likely underlying HFpEF due to valvular disease, which could be contributing. -may need oral diuretic on discharge. Case discussed with Dr. Red I spent a total of 60 minutes on the date of service in preparation, delivery, and documentation of the care provided to this patient, excluding any time spent in the performance of separately billed services. Valery Castaneda PA-C Department of Cardiology, [facility] This chart was completed in part utilizing Speech Voice Recognition Software. Grammatical errors, random word insertions, pronoun errors, and incomplete sentences are an occasional consequence of this system due to software limitations, ambient noise, and hardware issues. Any formal questions or concerns about the content, text, or information contained within the body of this dictation should be directly addressed to the provider for clarification. Supervising Physician Co-Signing Physician Notes Case Discussed with Johnny Castaneda PA-C. Agree with plan as outlined. Presenting EKG revealed a narrow complex tachycardia at 180 bpm with morphology suggestive of SVT or atrial flutter. Converted to sinus tachycardia at 110 bpm after receiving IV fluids. Second episode of tachycardia also resolved spontaneously. Echo reveals normal LVEF, moderate mitral stenosis and left pleural effusion. Agree with low dose metoprolol. Vish Red DO History of Present Illness Reason for Consultation: Tachycardia Requesting Physician: Luciano Hospitalist Attending Physician: Dr. Red History of Present Illness Patient is an 85-year-old female here with admitted to [facility] today after having been found to have electrolyte abnormalities as an outpatient with critically low calcium. Upon arrival to the ER, patient found to be tachycardic with HR's in the 180's. She was asymptomatic. EKG and telemetry reviewed. Appeared to be SVT in the 180's, resolving spontaneously. Started on Metoprolol tartrate 12.5 mg BID. She had 2nd episode int he ER lasting several minutes and resolving spontaneously. Again she was asymptomatic. Calcium and magnesium critically low and supplements started in ER. Patient denies acute complaints. She admits to ongoing SOB, but this is not new. No chest pain. No fever, cough, chills. She admits to poor PO intake of nutrition over the last year. She denies history of cardiovascular problems or complaints. she did have an echocardiogram in May 2025 after being diagnosed with large left pleural effusion. Found to have preserved LVEF with moderate mitral stenosis She has never taken diuretics as an outpatient per her knowledge. No family at bedside currently. Per chart review she has a history of "HFpEF". History includes: 1. Colon CA now in remission 2. Left pleural effusion s/p thoracentesis in May 2025 - followed by pulm - No malignancy noted in pleural fluid 3. HTN 4. dyslipidemia 5. Mitral stenosis Allergies Allergy/AdvReac Type Severity Reaction Status Date / Time No Known Allergies Allergy Unknown Verified 08/02/24 14:19 Home Medications Medication Instructions Recorded Confirmed Type omeprazole 20 mg capsule,delayed 40 mg PO BID 07/26/24 07/31/25 History release sucralfate 1 gram tablet 0 g PO ACHS 08/02/24 07/31/25 History amlodipine 5 mg tablet 5 mg PO DAILY 07/31/25 07/31/25 History atorvastatin 40 mg tablet 40 mg PO DAILY 07/31/25 07/31/25 History ferrous sulfate 325 mg (65 mg 325 mg PO .Q OTHER DAY 07/31/25 07/31/25 History iron) tablet (FeroSul) mirtazapine 15 mg tablet 15 mg PO DAILY 07/31/25 07/31/25 History Patient History Medical History GERD (gastroesophageal reflux disease) Surgical History History of lysis of adhesions (2007) Hx of section (1976) Hx of exploratory laparotomy (1976) Hx of appendectomy (1950) Social History Smoking Status: Former smoker Tobacco Type: Declines Smoking End Date: 10 yrs ago; Second Hand Exposure: No; Do You Dip or Chew Tobacco: No; Tobacco Cessation Education Requested by Patient: No Hx Alcohol Use: No Hx Substance Use: No Preferred Language: Spanish Communication Ability: Effective 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 Beliefs That Will Affect Care: None Current Living Situation: Spouse Other Information That Helps Us Care for You: No Feels Safe at Home: Yes Safety Concerns: Feels Safe At This Time Assistive Devices: Cane, Denture - Upper, Denture - Lower and Glasses Review of Systems Review of Systems: All systems reviewed & are unremarkable except as noted in HPI & below Physical Exam Constitutional: WD/WN, vitals as above + thin Neck: normal visual inspection Respiratory: no labored breathing Auscultation: + diminished lung sounds (L >R) Cardiovascular: Rate/Rhythm: regular rate and regular rhythm Heart Sounds: + murmur (II/ best heard Lower left sternal border) Vessels: + JVD Extremities: no edema Gastrointestinal (Abdomen): normal bowel sounds, soft, nontender, no hepatosplenomegaly Results & Data Vital Signs (Past 12 Hours) Vital Signs Temp Pulse Pulse Resp BP BP Pulse Ox 07/31/25 14:56 07/31/25 12:00 86 18 103/62 95 07/31/25 10:33 179 H 07/31/25 10:27 113 H 29 H 120/80 96 07/31/25 10:24 110 H 105/69 07/31/25 10:08 105/69 07/31/25 10:06 80/51 L 07/31/25 10:03 180 H 22 92/49 L 93 07/31/25 10:02 58/40 L 07/31/25 10:00 179 H 29 H 68/51 L 95 07/31/25 09:58 91/78 L 07/31/25 09:47 36.4 C L 181 H 16 87/70 L 89 L 07/31/25 09:42 180 H 27 H 122/89 94 O2 Del Method O2 Flow Rate 07/31/25 14:56 Nasal Cannula 1 07/31/25 12:00 Nasal Cannula 2 07/31/25 10:33 07/31/25 10:27 Nasal Cannula 2 07/31/25 10:24 07/31/25 10:08 07/31/25 10:06 07/31/25 10:03 Nasal Cannula 2 07/31/25 10:02 07/31/25 10:00 Nasal Cannula 2 07/31/25 09:58 07/31/25 09:47 Room Air 07/31/25 09:42 Nasal Cannula 2 Laboratory Results Cardiac Enzymes 07/31/25 Range/Units 09:33 AST 19 (13-39) U/L Troponin I High Sens 13.4 (0-14) pg/ml Coagulation 07/31/25 Range/Units 09:33 PT 13.0 H (9.0-12.0) Seconds APTT 31 (21-31) Seconds CBC 07/31/25 Range/Units 09:33 WBC 10.11 (4.8-10.8) K/ul RBC 4.30 (4.20-5.40) M/uL Hgb 10.9 L (12.0-16.0) g/dl Hct 34.2 L (37.0-47.0) % Plt Count 271 (130-400) K/uL Neut # (Auto) 5.12 (1.40-6.50) K/uL Lymph # (Auto) 3.74 H (1.20-3.40) K/uL [place] # (Auto) 0.50 (0.11-0.59) K/uL Eos # (Auto) 0.68 H (0.00-0.50) K/uL Baso # (Auto) 0.04 (0.00-0.20) K/uL Comprehensive Metabolic Panel 07/31/25 07/31/25 Range/Units 09:33 14:26 Sodium 141 138 (136-145) mmol/L Potassium 3.4 L 3.6 (3.5-5.1) mmol/L Chloride 102 101 (98-107) mmol/L Carbon Dioxide 25 27 (21-32) mmol/L BUN 17 16 (6-23) mg/dl Creatinine 1.30 H 1.16 (0.6-1.2) mg/dl Glucose 160 H 131 H (70-99(Fasting)) mg/dl Calcium 6.3 L 6.8 L (8.6-10.3) mg/dl AST 19 (13-39) U/L ALT 6 L (7-52) U/L Alkaline Phosphatase 121 H (34-104) U/L Total Protein 7.6 (6.0-8.3) gm/dl Albumin 3.4 (3.4-5.0) gm/dl Intake and Output 07/31/25 07/31/25 07/31/25 06:59 14:59 22:59 Intake Total 1432 / 1432 Balance 1432 / 1432 Intake: IV 832 / 832 Calcium Gluconate 1,000 mg In 132 / 132 60 ml @ 240 mls/hr IV Q15M [facility] Rx#:[id number] Magnesium Sulfate / D5w 1 gm In 200 / 200 100 ml @ 200 mls/hr IV Q30M [facility] Rx#:[id number] Sodium Chloride 0.9% 500 ml @ 500 / 500 999 mls/hr IV .Q31M [facility] Rx#: [id number] Oral 600 / 600 Other: Weight 53.5 kg Weight Measurement Method Built in [facility] Patient Weight 08/01/25 06:59 Weight 53.5 kg Diagnostic Findings Telemetry reviewed: 2 bouts of narrow complex tachycardia in the 180's, suggestive of SVT. Currently NSR/Sinus tachycardia in the 90-100's. EKG on arrival: Probable SVT with RVR at 180 bmp old septal infarct Repeat EKG Sinus tachycardia with 1st degree AV block Possible old anteroseptal infarct Chest X-Ray 07/31/25 09:36 XR chest 1V portable CLINICAL HISTORY: eval for cough COMPARISON STUDY: 03/29/2025 FINDINGS: There is stable cardiomegaly with mild pulmonary vascular congestion. There is a moderate to large left pleural effusion and associated consolidation at the left lower lung, increased. Right lung remains well aerated. No pneumothorax. IMPRESSION: Increased left pleural effusion and left pulmonary consolidation. ACT 112: Negative or not required by law. Electronically signed by: Tiago Vyas M.D. 07/31/2025 10:00 AM Prior outside data reviewed: Interpretation Summary There wasl sinus rhythm with occasional ventricular ectopic beats during the examination. The left ventricular cavity size is normal. The LV wall thickness is moderately increased (concentric). The left ventricular wall motion is normal. The qualitative LV ejection fraction is 55-59% (normal). The left atrium is severely enlarged (>48 ml/m^2,). The mitral valve is calcified and thickened with severe mitral valve annular calcification and moderate thickening calcification of the leaflets. Leaflet mobility is restricted Moderate mitral stenosis is present. Mild mitral regurgitation is present. Mild tricuspid regurgitation is present. There is no evidence of pulmonary hypertension. A large left plerual effusion is present. Medications Administered Current Inpatient Medications Acetaminophen (Acetaminophen 325 Mg Tab) 650 mg PO Q4H PRN PRN Reason: Pain or Fever Stop: 08/30/25 12:13 Al Hydrox/Mg Hydrox/Simethicone (Aluminum/Magnesium Susp 30 Ml Udc) 15 ml PO Q4H PRN PRN Reason: Dyspepsia Stop: 08/30/25 12:13 Atorvastatin Calcium (Atorvastatin 40 Mg Tab) 40 mg PO DAILY [facility] Stop: 08/31/25 08:59 Calcium Carbonate (Calcium Carbonate 500 Mg Chewable Tab) 1,000 mg PO BID [facility] Stop: 08/30/25 12:14 Last Admin: 07/31/25 13:09 Dose: 1,000 mg Ferrous Sulfate (Ferrous Sulfate 325 Mg Tab) 325 mg PO Q2D@0900 [facility] Stop: 08/30/25 14:44 Last Admin: 07/31/25 15:19 Dose: 325 mg Levothyroxine Sodium (Levothyroxine Sodium 25 Mcg Tablet) 25 mcg PO DAILYBB [facility] Stop: 08/31/25 06:29 Metoprolol Tartrate (Metoprolol Tartrate 1 Mg/Ml Vial) 2.5 mg IV Q6 PRN PRN Reason: for HR> 130 bpm Stop: 08/30/25 17:59 Metoprolol Tartrate (Metoprolol Tartrate 25 Mg Tab) 12.5 mg PO BID [facility] Stop: 08/30/25 20:59 Mirtazapine (Mirtazapine Tab 15 Mg Tab) 15 mg PO DAILY [facility] Stop: 08/31/25 08:59 Multivitamins/Minerals (Cerovite Adv Formula Tab) 1 tab PO QAM [facility] Stop: 08/30/25 12:14 Last Admin: 07/31/25 13:10 Dose: 1 tab Pantoprazole Sodium (Pantoprazole 40 Mg Tab) 40 mg PO BID [facility] Stop: 08/30/25 20:59 Polyethylene Glycol (Polyethylene (Miralax) 17 Gm Pack) 17 gm PO DAILY PRN PRN Reason: Constipation Stop: 08/30/25 12:13 PG Care Time/CCT Total # of Minutes Spent Total Time Spent with Patient: Total time spent is greater than 50% in coordination of care (as documented) at patient's floor/unit and/or counseling patient: 60 minutes Coding Level of Care Code 13783 INT INP/OBS CARE 3/75MIN Diagnoses SVT (supraventricular tachycardia) I47.10 Hypomagnesemia E83.42 Hypocalcemia E83.51 Recurrent left pleural effusion J90
--- NOTE | 2025-07-31 16:54 | XCELERA ---
[id number] [id number]
[2025-07-31] MEDS: METOPROLOL TARTRATE 25 MG TAB PO SCH (20:42)
[2025-08-01 01:31] LABS: Anion Gap 7.0 (3-11); Calcium 6.9 mg/dl (8.6-10.3); Carbon Dioxide 28.0 mmol/L (21-32); Chloride 105.0 mmol/L (98-107); Magnesium 1.1 mg/dl (1.7-2.4); Potassium 4.0 mmol/L (3.5-5.1); Sodium 140.0 mmol/L (136-145)
[2025-08-01 01:37] LABS: Blood Urea Nitrogen 15.0 mg/dl (6-23); Creatinine Clr Calc Pharmacy 28.5 ml/min; Glucose 103.0 mg/dl (70-99(Fasting))
[2025-08-01] MEDS: MAGNESIUM SULFATE / D5W 1 GM/100 ML BAG IV SCH (04:25)
[2025-08-01] MEDS: LEVOTHYROXINE SODIUM 25 MCG TABLET PO SCH (06:12)
[2025-08-01 06:26] LABS: Hematocrit (blood only) 26.6 % (37.0-47.0); Hemoglobin 8.7 g/dL (12.0-16.0); Mean Corpuscular Hemoglobin 26.0 pg (25.0-34.0); Mean Corpuscular Volume 79.4 fL (80.0-100.0); Platelet Count 173 K/uL (130-400); RDW Standard Deviation 52.1 fL (36.4-46.3); Red Blood Count 3.35 M/uL (4.20-5.40); White Blood Count 6.38 K/ul (4.8-10.8)
[2025-08-01 07:15] LABS: Alanine Aminotransferase 6.0 U/L (7-52); Albumin Globulin Ratio 0.9 (0.9-2); Albumin Level 2.9 gm/dl (3.4-5.0); Alkaline Phosphatase 103.0 U/L (34-104); Anion Gap 7.0 (3-11); Bilirubin,Total 0.6 mg/dl (0.2-1.0); Blood Urea Nitrogen 15.0 mg/dl (6-23); Calcium 7.2 mg/dl (8.6-10.3); Carbon Dioxide 29.0 mmol/L (21-32); Chloride 104.0 mmol/L (98-107); Creatinine Clr Calc Pharmacy 28.9 ml/min; Globulin 3.3 gm/dl (2.5-4.0); Glucose 88.0 mg/dl (70-99(Fasting)); Magnesium 1.3 mg/dl (1.7-2.4); Potassium 3.6 mmol/L (3.5-5.1); Sodium 140.0 mmol/L (136-145); Total Protein 6.2 gm/dl (6.0-8.3)
[2025-08-01] MEDS: ATORVASTATIN 40 MG TAB PO SCH (08:02)
[2025-08-01] MEDS: MIRTAZAPINE TAB 15 MG TAB PO SCH (08:03)
[2025-08-01] MEDS: CALCIUM GLUCONATE 1,000 MG/60 ML BAG IV SCH (08:27)
[2025-08-01] MEDS: POTASSIUM CHLORIDE CRTAB 20 MEQ TABCR PO STA (08:28)
--- NOTE | 2025-08-01 12:40 | Hospitalist Progress Note ---
Date of Service August 01, 2025 Assessment & Plan (1) SVT (supraventricular tachycardia): (2) Recurrent left pleural effusion: (3) Hypomagnesemia: (4) Hypocalcemia: (5) Hypokalemia: Plan Patient is a 85-year-old female presented with acute SVT in the setting of severe electrolyte abnormalities Continue replace electrolytes, overall significantly improved Continue telemetry monitoring, remains sinus rhythm Patient does have recurrent left pleural effusion, previous testing is indicated that is benign, suspect patient may need thoracentesis now versus waiting for her outpatient thoracentesis on 08/14/2025. Plan for ultrasound-guided thoracentesis today, repeat fluid testing Therapies Monitor electrolytes Continue metoprolol Admission and Anticipated Discharge Date Admission Date: July 31, 2025 Subjective Patient feeling better, no palpitations. Still slightly short of breath. Confirms she did have thoracentesis in the past she reports that testing on the pleural fluid did not reveal any definitive diagnosis. Physical Exam Physical Exam: Constitutional: Alert, nontoxic HEENT: Mucous membranes moist. Lungs: Good airflow right lung field, decreased breath sounds left, dullness to percussion CV: S1-S2, regular Abdomen: Soft, nontender, nondistended Extremities: No significant edema Neuro: No focal deficits Psych: Cooperative, normal mood Results & Data Results & Data Vital Signs (Past 12 Hours) Vital Signs Temp Pulse Pulse Pulse Resp BP BP 08/01/25 11:06 36.9 C 79 16 124/73 08/01/25 08:33 08/01/25 07:52 69 08/01/25 07:22 36.7 C 77 16 109/68 08/01/25 02:46 36.8 C 73 18 119/73 Pulse Ox O2 Del Method O2 Flow Rate 08/01/25 11:06 94 Room Air 08/01/25 08:33 Room Air 08/01/25 07:52 08/01/25 07:22 93 Room Air 08/01/25 02:46 90 Nasal Cannula 1 Diagnostic Findings Reviewed imaging, laboratory and diagnostic studies. Pertinent findings as below. Reviewed outside EMR: Patient had thoracentesis on the left chest on 06/15/2025, 1.2 L fluid was removed, cytology and laboratory testing was benign Echocardiogram from May 2025, normal ejection fraction 55 to 60%, moderate mitral stenosis, severe mitral calcification, no evidence of pulmonary hyperten tequila
--- NOTE | 2025-08-01 12:45 | Nephrology Progress Note ---
Date of Service August 01, 2025 Assessment & Plan (1) Hypocalcemia: Plan: critical hypocalcemia w/ SVT on presentation w/ presenting iCa 0.7 on 07/31. 25OH D 27 PTH 77 s/p 3 gm IV calcium w/ improvement to 0.9 gm on 07/31 Likeliest cause is PTH deficiency from critical hypomagnesemia w/ PTH inappropriately suppressed. Hypomagnesemia likely from high-dose PPI No need at this time to check PHTrp or 1,25 dihydroxy D Today she required another 3 gm of calcium gluconate(This includes back from overnight); as well as 4 g IV magnesium and 40 mEq potassium p.o. potassium 3.6 today in the morning; calcium 7.2; phosphorus 3.1, magnesium 1.3 -repeat BMP, mag, iCa this evening after above repletion as well as in AM >> orders are in Care coordinated w/ Dr Gasca via TText regarding repeat labs, possible PPI taper; we are in agreement. (2) Hypomagnesemia: Plan: her mag corrected suspiciously fast >> unlikely that 2 gm IV would bring this up to supratherapeutic level of 3.2 (? if drawn while mag running) potential cause is high dose PPI use, though again hypomagnesemia to this degree is unusual w/ PPI alone no CTX w/ recent colon cancer >repeat mag ordered >lowered PPI dose ot 20 mg bid (3) Recurrent left pleural effusion: Plan: consider thoracentesis and cytology/cellcount/fluid analysis as IP or OP >f/u thoracentesis results (4) SVT (supraventricular tachycardia): Plan: continue cardiac monitoring; so far no recurrence Admission and Anticipated Discharge Date Admission Date: July 31, 2025 Subjective for thoracentesis today pt denies sob, n/v, edema, weakness. no further nsvt on telemetry Review of Systems 2 Review of Systems: All systems reviewed & are unremarkable except as noted in Subjective Physical Exam 2 Constitutional: well developed, + thin, + frail appearing and cooperative; no acute distress Eyes: EOM intact bilaterally ENMT: Mouth: + dry oral mucous membranes Respiratory: normal respiratory effort Auscultation: + diminished lung sounds Cardiovascular: Rate/Rhythm: + tachycardic Extremities: no edema Gastrointestinal (Abdomen): Inspection/Auscultation: normal bowel sounds P ercussion/Palpation: abdomen soft; abdomen nontender Musculoskeletal: Extremities: strength 5/5 throughout Skin: no rashes, warm and dry Results & Data Vital Signs (Past 12 Hours) Vital Signs Temp Pulse Pulse Pulse Resp BP BP 08/01/25 11:06 36.9 C 79 16 124/73 08/01/25 08:33 08/01/25 07:52 69 08/01/25 07:22 36.7 C 77 16 109/68 08/01/25 02:46 36.8 C 73 18 119/73 Pulse Ox O2 Del Method O2 Flow Rate 08/01/25 11:06 94 Room Air 08/01/25 08:33 Room Air 08/01/25 07:52 08/01/25 07:22 93 Room Air 08/01/25 02:46 90 Nasal Cannula 1 Laboratory Results 08/01/25 05:36 08/01/25 05:36
--- NOTE | 2025-08-01 13:45 | Cardiology Progress Note ---
Date of Service August 01, 2025 Assessment & Plan (1) SVT (supraventricular tachycardia): (2) Hypomagnesemia: (3) Hypocalcemia: (4) Recurrent left pleural effusion: Plan Patient is an 85 year old female who was admitted to [facility] for electrolyte disturbances and found to have narrow complex tachycardia in the 180's suggestive of SVT. She was asymptomatic. Duration unknown, but likely caused by severe electrolyte imbalances. Narrow complex tachycardia, probable SVT/AVNRT given HR and spontaneous conversion on telemetry. -started on metoprolol tartrate 12.5 mg BID -Replace electrolytes -Patient was asymptomatic -HS troponin negative x1 -Echo results pending -It is possible this narrow complex atrial arrhythmia was 2:1 atrial flutter, but difficult to determine due to rate. -At this point, would not recommend initiation of anticoagulation -No recurrent events overnight. continue metoprolol. Hypomag and Hypocalc -Nephrology consulted -supplement as tolerated/needed Large left pleural effusion -s/p thoracentesis in Sept -Scheduled for repeat thoracentesis as an outpatient on 08/14, but may benefit from having done here -Left thoracetnesis to be done today -would recommend repeat analysis of her pleural fluid given fast re- accumulation and hsitory of CA -Consider diuretic initiation once her electrolytes have stabilized Case discussed with Dr. Oswald I spent a total of 30 minutes on the date of service in preparation, delivery, a nd documentation of the care provided to this patient, excluding any time spent in the performance of separately billed services. Valery Castaneda PA-C Department of Cardiology, [facility] This chart was completed in part utilizing Speech Voice Recognition Software. Grammatical errors, random word insertions, pronoun errors, and incomplete sentences are an occasional consequence of this system due to software limitations, ambient noise, and hardware issues. Any formal questions or concerns about the content, text, or information contained within the body of this dictation should be directly addressed to the provider for clarification. Admission and Anticipated Discharge Date Admission Date: July 31, 2025 Supervising Physician Co-Signing Physician Notes I have personally performed a history and physical examination on the patient. I have reviewed the advance practitioner's documentation, and I agree with, and take responsibility for the plan of care. 85-year-old admitted secondary to significant electrolyte derangement found to h ave narrow complex tachycardia in the 180s suggestive of supraventricular tachycardia. Patient asymptomatic at the time. Spontaneously converted to normal sinus rhythm. 2D echocardiogram demonstrating preserved LV systolic function, moderate concentric left ventricular hypertrophy, moderate mitral stenosis, mild mitral and tricuspid regurgitation without evidence of pulmonary hypertension. There is a large left pleural effusion. Recommend continue with metoprolol tartrate 12.5 mg twice daily. Replace electrolytes as indicated. Scheduled for left-sided thoracentesis today. Maintain telemetry monitoring during hospitalization. Christiano Oswald DO [facility] I spent a total of 25 minutes on the date of service in preparation, delivery, and documentation of the care provided to this patient, excluding any time spent in the performance of separately billed services. Subjective Patient resting in bed. Feeling better today. Weakness improving. No chest pain. SOB at baseline. plans for left thoracentesis today. No dizziness. No palpitations. No arrhythmias overnight. Review of Systems Review of Systems: All systems reviewed & are unremarkable except as noted in HPI & below Physical Exam Constitutional: WD/WN, vitals as above + thin Neck: normal visual inspection Respiratory: no labored breathing Auscultation: + diminished lung sounds (L >R) Cardiovascular: Rate/Rhythm: regular rate and regular rhythm Heart Sounds: + murmur (II/ best heard Lower left sternal border) Vessels: + JVD Extremities: no edema Gastrointestinal (Abdomen): normal bowel sounds, soft, nontender, no hepatosplenomegaly Neurologic: PERRL, EOMI, accommodation nl, no face palsy, no dysarthria Results & Data Vital Signs (Past 12 Hours) Vital Signs Temp Pulse Pulse Pulse Resp BP BP 08/01/25 11:06 36.9 C 79 16 124/73 08/01/25 08:33 08/01/25 07:52 69 08/01/25 07:22 36.7 C 77 16 109/68 08/01/25 02:46 36.8 C 73 18 119/73 Pulse Ox O2 Del Method O2 Flow Rate 08/01/25 11:06 94 Room Air 08/01/25 08:33 Room Air 08/01/25 07:52 08/01/25 07:22 93 Room Air 08/01/25 02:46 90 Nasal Cannula 1 Laboratory Results Cardiac Enzymes 08/01/25 Range/Units 05:36 AST 16 (13-39) U/L CBC 08/01/25 Range/Units 05:36 WBC 6.38 (4.8-10.8) K/ul RBC 3.35 L (4.20-5.40) M/uL Hgb 8.7 L (12.0-16.0) g/dL Hct 26.6 L (37.0-47.0) % Plt Count 173 (130-400) K/uL Comprehensive Metabolic Panel 07/31/25 08/01/25 08/01/25 Range/Units 14:26 00:52 05:36 Sodium 138 140 140 (136-145) mmol/L Potassium 3.6 4.0 3.6 (3.5-5.1) mmol/L Chloride 101 105 104 (98-107) mmol/L Carbon Dioxide 27 28 29 (21-32) mmol/L BUN 16 15 15 (6-23) mg/dl Creatinine 1.16 1.21 H 1.22 H (0.6-1.2) mg/dl Glucose 131 H 103 H 88 (70-99(Fasting)) mg/dl Calcium 6.8 L 6.9 L 7.2 L (8.6-10.3) mg/dl AST 16 (13-39) U/L ALT 6 L (7-52) U/L Alkaline Phosphatase 103 (34-104) U/L Total Protein 6.2 (6.0-8.3) gm/dl Albumin 2.9 L (3.4-5.0) gm/dl Intake and Output 07/31/25 08/01/25 08/01/25 22:59 06:59 14:59 Intake Total 790 / 2849.5 627.5 / 2849.5 420 / 420 Output Total 350 / 350 Balance 440 / 2499.5 627.5 / 2499.5 420 / 420 Intake: IV 147.5 / 979.5 420 / 420 Calcium Gluconate 1,000 mg In 60 / 60 120 / 120 60 ml @ 240 mls/hr IV Q15M [facility] Rx#:[id number] Magnesium Sulfate / D5w 1 gm In 87.5 / 87.5 300 / 300 100 ml @ 50 mls/hr IV Q2H [facility] Rx#:[id number] Oral 790 / 1870 480 / 1870 Output: Urine 350 / 350 Other: # Unmeasured Voids 1 1 Weight 54 kg 55.3 kg Weight Measurement Method Built in [facility] Built in [facility] Diagnostic Findings Telemetry reviewed: NSR with occ PVC. HR ranging 80-90's. No recurrent atrial arrhythmias Echo report reviewed: Normal LVEF at 55-59% Mitral valve is calcified and thickened with severe MAC Moderate mitral stenosis Mild MR Mild TR No pulm hypertension Large left pleural effusion Medications Administered Current Inpatient Medications Acetaminophen (Acetaminophen 325 Mg Tab) 650 mg PO Q4H PRN PRN Reason: Pain or Fever Stop: 08/30/25 12:13 Al Hydrox/Mg Hydrox/Simethicone (Aluminum/Magnesium Susp 30 Ml Udc) 15 ml PO Q4H PRN PRN Reason: Dyspepsia Stop: 08/30/25 12:13 Atorvastatin Calcium (Atorvastatin 40 Mg Tab) 40 mg PO DAILY [facility] Stop: 08/31/25 08:59 Last Admin: 08/01/25 08:02 Dose: 40 mg Calcium Carbonate (Calcium Carbonate 500 Mg Chewable Tab) 1,000 mg PO BID [facility] Stop: 08/30/25 12:14 Last Admin: 08/01/25 08:02 Dose: 1,000 mg Ferrous Sulfate (Ferrous Sulfate 325 Mg Tab) 325 mg PO Q2D@0900 [facility] Stop: 08/30/25 14:44 Last Admin: 07/31/25 15:19 Dose: 325 mg Levothyroxine Sodium (Levothyroxine Sodium 25 Mcg Tablet) 25 mcg PO DAILYBB [facility] Stop: 08/31/25 06:29 Last Admin: 08/01/25 06:12 Dose: 25 mcg Metoprolol Tartrate (Metoprolol Tartrate 25 Mg Tab) 12.5 mg PO BID [facility] Stop: 08/30/25 20:59 Last Admin: 08/01/25 08:02 Dose: 12.5 mg Mirtazapine (Mirtazapine Tab 15 Mg Tab) 15 mg PO DAILY [facility] Stop: 08/31/25 08:59 Last Admin: 08/01/25 08:03 Dose: 15 mg Multivitamins/Minerals (Cerovite Adv Formula Tab) 1 tab PO QAM [facility] Stop: 08/30/25 12:14 Last Admin: 08/01/25 08:03 Dose: 1 tab Pantoprazole Sodium (Pantoprazole 40 Mg Tab) 40 mg PO BID [facility] Stop: 08/30/25 20:59 Last Admin: 08/01/25 08:03 Dose: 40 mg Polyethylene Glycol (Polyethylene (Miralax) 17 Gm Pack) 17 gm PO DAILY PRN PRN Reason: Constipation Stop: 08/30/25 12:13 PG Care Time/CCT Total # of Minutes Spent Total Time Spent with Patient: Total time spent is greater than 50% in coordination of care (as documented) at patient's floor/unit and/or counseling patient: 30 minutes Coding Level of Care Code 97479 SUB INP/OBS CARE 3/50MIN Diagnoses SVT (supraventricular tachycardia) I47.10 Hypomagnesemia E83.42 Hypocalcemia E83.51 Recurrent left pleural effusion J90
--- NOTE | 2025-08-01 16:13 | XRay Report ---
XR chest 1V not portable CLINICAL HISTORY: post thoracentesis COMPARISON STUDY: 07/31/2025 FINDINGS: Stable cardiomegaly with mild pulmonary vascular congestion. There is a small to moderate l eft pleural effusion and associated consolidation at the left lung base, improved. No pneumothorax se en. IMPRESSION: No pneumothorax seen. ACT 112: Negative or not required by law. Electronically signed by: Tiago Vyas M.D. 08/01/2025 4:11 PM
--- NOTE | 2025-08-01 16:17 | Ultrasound Report ---
IR thoracentesis wo tube US CLINICAL HISTORY: effusion COMPARISON STUDY: None FINDINGS: After the procedure was discussed and questions answered, consent was obtained. Patient was positioned in the seated upright. Ultrasound demonstrated large left pleural effusion. Left back was prepped and draped in standard sterile fashion. 1% lidocaine was used for local anesthesia. Under ul trasound guidance, a standard thoracentesis catheter was advanced to the left pleural effusion. 1 L o f straw-colored fluid was withdrawn and sent to the lab for analysis. Catheter was removed. Hemostasi s was obtained with manual compression. Sterile dressing was applied. No pneumothorax seen on the pos tprocedure x-ray. IMPRESSION: Left thoracentesis as described. ACT 112: Negative or not required by law. Electronically signed by: Tiago Vyas M.D. 08/01/2025 4:15 PM
[2025-08-01 17:03] LABS: Appearance Pleural Fluid Clear; Color Pleural Fluid Yellow; RBC Pleural Fluid Auto < 2000 /uL; Source Pleural Fluid Left Lung; WBC Pleural Fluid Auto 293 /uL
[2025-08-01 19:34] LABS: Anion Gap 10.0 (3-11); Blood Urea Nitrogen 14.0 mg/dl (6-23); Calcium 7.9 mg/dl (8.6-10.3); Carbon Dioxide 24.0 mmol/L (21-32); Chloride 103.0 mmol/L (98-107); Creatinine Clr Calc Pharmacy 24.5 ml/min; Glucose 114.0 mg/dl (70-99(Fasting)); Magnesium 2.1 mg/dl (1.7-2.4); Potassium 4.3 mmol/L (3.5-5.1); Sodium 137.0 mmol/L (136-145)
--- NOTE | 2025-08-01 20:05 | Communication Note ---
Date of Service: August 01, 2025 Patient noted to be confused and agitated. [facility] delirium Rule out infection One-to-one nursing as needed Zyprexa as needed agitation not amenable to behavioral management Check UA
[2025-08-01] MEDS: MELATONIN 3 MG TAB PO PRN (20:42)
[2025-08-02 07:52] LABS: Hematocrit (blood only) 26.9 % (37.0-47.0); Hemoglobin 8.5 g/dL (12.0-16.0); Mean Corpuscular Hemoglobin 25.3 pg (25.0-34.0); Mean Corpuscular Volume 80.1 fL (80.0-100.0); Platelet Count 178 K/uL (130-400); RDW Standard Deviation 53.5 fL (36.4-46.3); Red Blood Count 3.36 M/uL (4.20-5.40); White Blood Count 6.48 K/ul (4.8-10.8)
[2025-08-02 08:06] LABS: Anion Gap 7.0 (3-11); Blood Urea Nitrogen 15.0 mg/dl (6-23); Calcium 8.2 mg/dl (8.6-10.3); Carbon Dioxide 27.0 mmol/L (21-32); Chloride 105.0 mmol/L (98-107); Creatinine Clr Calc Pharmacy 25.5 ml/min; Glucose 91.0 mg/dl (70-99(Fasting)); Magnesium 2.0 mg/dl (1.7-2.4); Potassium 4.0 mmol/L (3.5-5.1); Sodium 139.0 mmol/L (136-145)
[2025-08-02 08:10] LABS: Appearance Urine Clear (Clear); Bacteria Urine Automated 4+ (None Seen); Cast Urine Automated 0-2 /lpf (0-2); Glucose Urine UA Negative (Negative); RBC Urine Automated 0-2 /hpf (0-2)
[2025-08-02 09:18] LABS: Eosinophils, Fluid 12 %; Lymphocytes, Fluid 20 %; Mono,Macrophage,Mesothelial 63 %; Neutrophils, Fluid 5 %
--- NOTE | 2025-08-02 09:30 | Nephrology Progress Note ---
Date of Service August 02, 2025 Assessment & Plan (1) Hypocalcemia: Plan: critical hypocalcemia w/ SVT on presentation w/ presenting iCa 0.7 on 07/31. 25OH D 27 PTH 77 s/p 3 gm IV calcium w/ improvement to 0.9 gm on 07/31 Likeliest cause is PTH deficiency from critical hypomagnesemia w/ PTH inappropriately suppressed. Hypomagnesemia likely from high-dose PPI Malnutrition likely has a role in all of this; see below No need at this time to check PHTrp or 1,25 dihydroxy D On August 01 she required another 3 gm of calcium gluconate(This includes back from overnight); as well as 4 g IV magnesium and 40 mEq potassium p.o. Today ionized calcium remains low but other labs are within normal limits >to support calcium supplements added calcitriol > 0.25 mcg daily and changed calcium supplements to calcium carbonate 1250 mg bid >> ordered prealbumin, t saturation/Fe panel, B12, folate, retic count today >stopped po iron > will give IV if indicated >>ordered dietary evaluation to help with higher calcium/mag diets that might appeal to this pt and be affordable that she could do at home >>discussed possible GI eval or BSS w/ Dr Gasca by phone who will move this forward as indicated NEPH D/C RECS (preliminary; not yet signing off) DX: -critical hypocalcemia -critical hypomagnesemia -CKD3B -malnutrition/weight loss 13% TBW in 11 months (Jul - Jul) -recurrent pleural effusion -SVT -worsening normocytic anemia -esophageal stenosis at GE junction on 07/2024 EGD -dementia RX: -[employer] brand Calcium 1200 mg [employer] Softgels (pls use this specific brand for most calcium with fewest pills)>> take 2 daily with food -calcitriol 0.25 mcg daily -SlowMag brand mag supplements (pls use this specific brand if able for maximum absorption and a bit more calcium), 2 tablets twice daily -protonix dose 20 mg bid and lower if able; try to avoid increasing dose; note dose timing below OTHER CARE: -f/u pleural effusion w/ [facility] pulmonary Dr Yanez -f/u GEJ / esophageal stenosis >>consider barium swallow study as outpatient/inpatient to evaluate GEJ >recommend speech evaluation >>time PPI dose to be 2 hours away from other medications; may take other supplements together Labs weekly to be ordered by nephrology nurse under my name x 4: Ionized calcium, magnesium, phosphorus, basic metabolic panel, hemoglobin, prealbumin; please also get urinalysis with microscopy and ACR if not done within the past year in the [employer] system -minimize pill burden where possible/focus on Follow-up appointment: Hospital discharge appointment with me in 2 to 4 weeks katarzyna Julien (2) Hypomagnesemia: Plan: her mag corrected suspiciously fast >> unlikely that 2 gm IV would bring this up to supratherapeutic level of 3.2 (? 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 labs tomorrow or as outpatient if she is for discharge (6) Malnutrition: Plan: Suspect this underlies at least some of her electrolyte issues 13% total body weight loss in the past 11 months 2023 EGD with moderate GEJ stenosis and pathology with inflammation but no malignancy or metaplasia/dysplasia>> may be contributing to weight loss if progressed Albumin 2.9 on August 01 presentation > Ordered prealbumin >suggest barium swallow study as inpatient or outpatient >suggest nutrition consult w/ pt and her daughter both to be present prior to discharge > so ordered Plan time spent 70 minutes; medically complex pt Admission and Anticipated Discharge Date Admission Date: July 31, 2025 Subjective Confusion and agitation overnight required 2 doses of olanzapine and now with a sitter. Denies shortness of breath. Admits she is not interested in taking pills or food; generally with poor appetite. Denies dysphagia to solids or liquids; denies heartburn symptoms or chest discomfort or palpitations. Denies worsening breathing or orthopnea. Denies muscle weakness or fasciculations Review of Systems 2 Review of Systems: All systems reviewed & are unremarkable except as noted in Subjective Physical Exam 2 Constitutional: well developed, + thin, + frail appearing and cooperative; no acute distress Eyes: EOM intact bilaterally ENMT: Mouth: + dry oral mucous membranes Respiratory: normal respiratory effort Auscultation: + diminished lung sounds ( coco R base) Cardiovascular: Rate/Rhythm: regular rate and regular rhythm Extremities: n o edema Gastrointestinal (Abdomen): Inspection/Auscultation: normal bowel sounds P ercussion/Palpation: abdomen soft; abdomen nontender Musculoskeletal: Extremities: strength 5/5 throughout Skin: no rashes, warm and dry Results & Data Vital Signs (Past 12 Hours) Vital Signs Temp Pulse Pulse Resp BP Pulse Ox O2 Del Method 08/02/25 07:01 36.6 C 72 18 125/66 93 Room Air 08/02/25 05:00 36.6 C 72 16 126/67 91 Room Air Laboratory Results 08/02/25 06:20 08/02/25 06:20 Ionized calcium 1.0 Magnesium 2.0 Phosphorus 2.5
[2025-08-02] MEDS: CALCIUM GLUCONATE 1,000 MG/60 ML BAG IV SCH (11:07)
--- NOTE | 2025-08-02 11:42 | Hospitalist Progress Note ---
Date of Service August 02, 2025 Assessment & Plan (1) SVT (supraventricular tachycardia): Plan: Resolved due to severe electrolyte abnormalities (2) Recurrent left pleural effusion: (3) Hypomagnesemia: (4) Hypocalcemia: (5) Hypokalemia: (6) Severe protein-calorie malnutrition: (7) CKD stage 3b, GFR 30-44 ml/min: (8) Esophageal stricture: (9) Dementia in Alzheimer's disease with delirium: Plan Patient 85-year-old female with paroxysmal SVT due to severe electrolyte abnormalities due to malnutrition. Now with acute delirium in the setting of Alzheimer's dementia. Electrolytes have significantly improved, give additional calcium today Communication with nephrology, recommending ongoing supplementation of electrolytes, Reviewed EGD from July 2024, significant esophageal stenosis, this may be partially explaining patient's malnutrition and that she may not be able to swallow all her food comfortably and she is self restricting her intake due to this. Consult GI to evaluate if patient candidate for repeat EGD or other imaging to assess esophageal stricture/esophageal functioning Phone conversation with the patient's . He is aware of the delirium. He states that even at home over the past few months he has been dealing with some increasing confusion and irritability mostly at night. He states that usually he is able to "talk her down." He also confirms that she has been eating very poorly over the past several months with essentially minimal oral intake. His history confirms my diagnosis of dementia. I discussed this with him and he understands that this is something that we will progress. Physical therapy recommending rehab. Communication with case management, applications to [facility] Will try Risperdal in the evening to see if this helps with her "owning" one-to-one only if needed. Admission and Anticipated Discharge Date Admission Date: July 31, 2025 Subjective Events of last evening noted, acute hospital delirium in the setting of dementia. Was sleeping this morning but easily awakened. Physical Exam Physical Exam: Constitutional: Asleep but easily awakened HEENT: Mucous membranes moist. Lungs: Clear to auscultation, decreased, no wheezes rales or rhonchi CV: S1-S2, regular Abdomen: Soft, nontender, nondistended Extremities: No significant edema Neuro: No focal deficits, generally weak, oriented to name Psych: Cooperative, normal mood Results & Data Results & Data Vital Signs (Past 12 Hours) Vital Signs Temp Pulse Pulse Resp BP Pulse Ox O2 Del Method 08/02/25 09:28 Room Air 08/02/25 07:01 36.6 C 72 18 125/66 93 Room Air 08/02/25 05:00 36.6 C 72 16 126/67 91 Room Air Diagnostic Findings Reviewed imaging, laboratory and diagnostic studies. Pertinent findings as below. Hemoglobin 8.5 Platelets 178 Creatinine 1.38 Ionized calcium 1.0 Other electrolytes significantly improved
--- NOTE | 2025-08-02 12:08 | Cardiology Progress Note ---
Date of Service August 02, 2025 Assessment & Plan (1) SVT (supraventricular tachycardia): (2) Hypomagnesemia: (3) Hypocalcemia: (4) Recurrent left pleural effusion: Plan Patient is an 85 year old female who was admitted to [facility] for electrolyte disturbances and found to have narrow complex tachycardia in the 180's suggestive of SVT. She was asymptomatic. Duration unknown, but likely caused by severe electrolyte imbalances. Narrow complex tachycardia, probable SVT/AVNRT given HR and spontaneous conversion on telemetry. -started on metoprolol tartrate 12.5 mg BID -Replace electrolytes -Patient was asymptomatic -HS troponin negative x1 -It is possible this narrow complex atrial arrhythmia was 2:1 atrial flutter, but difficult to determine due to rate. -At this point, would not recommend initiation of anticoagulation -No recurrent events overnight. -continue metoprolol. Hypomag and Hypocalc -Nephrology consulted -supplement as tolerated/needed Large left pleural effusion -s/p thoracentesis in Sept -Repeat thoracentesis completed yesterday with removal of 1 L of fluid -Consider diuretic initiation once her electrolytes have stabilized Stable cardiac symptoms continue low dose metoprolol. Will sign off. No further cardiac testing warranted. Please contact telecommunications analyst cardiology provider with additional questions or concerns. Case discussed with [employer] Department of Cardiology, [facility] This chart was completed in part utilizing Speech Voice Recognition Software. Grammatical errors, random word insertions, pronoun errors, and incomplete sentences are an occasional consequence of this system due to software limitations, ambient noise, and hardware issues. Any formal questions or concerns about the content, text, or information contained within the body of this dictation should be directly addressed to the provider for clarification. Admission and Anticipated Discharge Date Admission Date: July 31, 2025 Supervising Physician Co-Signing Physician Notes I have personally performed a history and physical examination on the patient. I have reviewed the advance practitioner's documentation, and I agree with, and take responsibility for the plan of care. 85-year-old admitted secondary to significant electrolyte derangement found to have narrow complex tachycardia in the 180s suggestive of supraventricular tachycardia. Patient asymptomatic at the time. Spontaneously converted to normal sinus rhythm. 2D echocardiogram demonstrating preserved LV systolic function, moderate concentric left ventricular hypertrophy, moderate mitral stenosis, mild mitral and tricuspid regurgitation without evidence of pulmonary hypertension. There is a large left pleural effusion. Recommend continue with metoprolol tartrate 12.5 mg twice daily. Replace electrolytes as indicated. Status post left-sided thoracentesis on 08/01/2025 yielding 1 L of straw-colored fluid. Chest x-ray performed postprocedure revealed small residual left pleural effusion, no pneumothorax -Continue metoprolol to tartrate 12.5 mg twice daily. Vish Red, Subjective Patient is resting in bed comfortably. Increased agitation noted over night. Answering questions appropriately. Denies chest pain or SOB. Underwent left thoracentesis yesterday with 1 L removed. She tolerated procedure. Fluid sample sent for repeat analysis Review of Systems Review of Systems: All systems reviewed & are unremarkable except as noted in HPI & below Physical Exam Constitutional: WD/WN, vitals as above + thin Neck: normal visual inspection Respiratory: no labored breathing Auscultation: + diminished lung sounds; no crackles and no rales Cardiovascular: Rate/Rhythm: regular rate and regular rhythm Heart Sounds: + murmur (II/ best heard Lower left sternal border) Vessels: no JVD Extremities: no edema Gastrointestinal (Abdomen): normal bowel sounds, soft, nontender, no hepatosplenomegaly Neurologic: PERRL, EOMI, accommodation nl, no face palsy, no dysarthria Results & Data Vital Signs (Past 12 Hours) Vital Signs Temp Pulse Pulse Resp BP Pulse Ox O2 Del Method 08/02/25 11:46 36.3 C L 80 18 149/75 H 93 Room Air 08/02/25 09:28 Room Air 08/02/25 07:01 36.6 C 72 18 125/66 93 Room Air 08/02/25 05:00 36.6 C 72 16 126/67 91 Room Air Laboratory Results CBC 08/02/25 Range/Units 06:20 WBC 6.48 (4.8-10.8) K/ul RBC 3.36 L (4.20-5.40) M/uL Hgb 8.5 L (12.0-16.0) g/dL Hct 26.9 L (37.0-47.0) % Plt Count 178 (130-400) K/uL Comprehensive Metabolic Panel 08/01/25 08/02/25 Range/Units 18:44 06:20 Sodium 137 139 (136-145) mmol/L Potassium 4.3 4.0 (3.5-5.1) mmol/L Chloride 103 105 (98-107) mmol/L Carbon Dioxide 24 27 (21-32) mmol/L BUN 14 15 (6-23) mg/dl Creatinine 1.44 H 1.38 H (0.6-1.2) mg/dl Glucose 114 H 91 (70-99(Fasting)) mg/dl Calcium 7.9 L 8.2 L (8.6-10.3) mg/dl Intake and Output 08/01/25 08/02/25 08/02/25 22:59 06:59 14:59 Intake Total 240 / 1600 120 / 120 Balance 240 / 1600 120 / 120 Intake: IV 120 / 120 Calcium Gluconate 1,000 mg In 120 / 120 60 ml @ 240 mls/hr IV Q15M [facility] Rx#:[id number] Oral 240 / 1180 Other: # Unmeasured Voids 1 Coding Level of Care Code 33197 SUB INP/OBS CARE 3/50MIN Diagnoses SVT (supraventricular tachycardia) I47.10 Hypomagnesemia E83.42 Hypocalcemia E83.51 Recurrent left pleural effusion J90
[2025-08-02] MEDS: MAGNESIUM CHLORIDE W/CALCIUM 64MG DELAYED REL TAB PO SCH (12:13)
[2025-08-02] MEDS: CALCIUM CARBONATE 1250MG TAB PO SCH (12:13)
[2025-08-02] MEDS: CALCITRIOL 0.25 MCG CAPSULE PO SCH (12:13)
[2025-08-02 12:42] LABS: Reticulocytes # 0.050 10^6/uL (0.020-0.100)
[2025-08-02 12:51] LABS: Albumin Level 3.1 gm/dl (3.4-5.0); Iron 68.0 mcg/dl (35-150); Prealbumin 8.9 mg/dl (20-40); Total Iron Binding Cap Calc 213.0 mcg/dl (250-450); Transferrin 152.0 mg/dl (200-360); Transferrin (FE) Percent Satur 32.0 % (15-50)
--- NOTE | 2025-08-02 13:13 | History & Physical Report ---
Date of Service August 02, 2025 Assessment & Plan (1) Esophageal stricture: Plan: Pleasant elderly female with a known, mild esophageal stricture but no dysphagia. Admittedly she doesn't have much of an appetite but she doesn't have pathology to explain that. She had an EGD last year so we know she doesn't have a UGI malignancy. She has been on PPI so I doubt that she has a new ulcer. I really don't have much to offer in the way of evaluation as I am not convinced we need to repeat endoscopy since she had one last year. She is not on any meds that typically suppress the appetite. I would just use appetite stimulants for now. If she goes home and problems progress or she develops difficulty swallowing she can have outpatient EGD. I would also have her weight followed as an outpatient as well. Admission and Anticipated Discharge Date Admission Date: July 31, 2025 History of Present Illness Chief Complaint: weight loss, stricture Primary Care Provider: Lele Giron MD 85 year old female admitted with cardiac issues that I am asked to see for malnutrition, weight loss and an esophageal stricture. I endoscoped her last year and she had an inflammatory narrowing at the EG junction. Stomach was normal. Duodenum had evidence of prior ulcer disease. She tells me that she does not have an appetite. She denies any issues swallowing. She doesn't feel like eating but when she eats food goes down and she feels fine. She denies abdominal pain. She does not vomit. 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 She says all of that "went well" and she didn't have to have any chemo. Allergies Allergy/AdvReac Type Severity Reaction Status Date / Time No Known Allergies Allergy Unknown Verified 08/02/24 14:19 Home Medications Medication Instructions Recorded Confirmed Type omeprazole 20 mg capsule,delayed 40 mg PO BID 07/26/24 07/31/25 History release sucralfate 1 gram tablet 0 g PO ACHS 08/02/24 07/31/25 History amlodipine 5 mg tablet 5 mg PO DAILY 07/31/25 07/31/25 History atorvastatin 40 mg tablet 40 mg PO DAILY 07/31/25 07/31/25 History ferrous sulfate 325 mg (65 mg 325 mg PO .Q OTHER DAY 07/31/25 07/31/25 History iron) tablet (FeroSul) mirtazapine 15 mg tablet 15 mg PO DAILY 07/31/25 07/31/25 History Past Med/Surg History Problem List Dementia in Alzheimer's disease with delirium Esophageal stricture Severe protein-calorie malnutrition Malnutrition CKD stage 3b, GFR 30-44 ml/min Hypokalemia Hypoxia (Acute) Narrow complex tachycardia (Acute) Recurrent left pleural effusion (Acute) Hypomagnesemia (Acute) SVT (supraventricular tachycardia) Hypocalcemia (Acute) Medical History GERD (gastroesophageal reflux disease) Surgical History History of lysis of adhesions (2007) Hx of section (1976) Hx of exploratory laparotomy (1976) Hx of appendectomy (1950) Social History Smoking Status: Former smoker Tobacco Type: Declines Smoking End Date: 10 yrs ago; Second Hand Exposure: No; Do You Dip or Chew Tobacco: No; Tobacco Cessation Education Requested by Patient: No Hx Alcohol Use: No Hx Substance Use: No Preferred Language: Wolof Communication Ability: Effective Retail Greeting Card Merchandiser Required: No Beliefs That Will Affect Care: None Current Living Situation: Spouse Other Information That Helps Us Care for You: No Feels Safe at Home: Yes Safety Concerns: Feels Safe At This Time Assistive Devices: Cane and Walker Review of Systems All systems reviewed & are unremarkable except as noted in HPI & below Physical Exam Physical Exam: Pleasant, thin elderly white female in no distress Constitutional: WD/WN, vitals as above Neck: trachea midline, no thyromegaly Respiratory: normal respiratory effort, lungs clear to auscultation Cardiovascular: RRR, no murmur, no edema Gastrointestinal (Abdomen): normal bowel sounds, soft, nontender, no hepatosplenomegaly Results & Data Vital Signs (Past 12 Hours) Vital Signs Temp Pulse Pulse Resp BP Pulse Ox O2 Del Method 08/02/25 12:51 104/61 08/02/25 11:46 36.3 C L 80 18 149/75 H 93 Room Air 08/02/25 09:28 Room Air 08/02/25 07:01 36.6 C 72 18 125/66 93 Room Air 08/02/25 05:00 36.6 C 72 16 126/67 91 Room Air Laboratory Results 08/02/25 08/02/25 08/02/25 Range/Units Unknown 11:55 06:20 WBC 6.48 (4.8-10.8) K/ul RBC 3.36 L (4.20-5.40) M/uL Hgb 8.5 L (12.0-16.0) g/dL Hct 26.9 L (37.0-47.0) % MCV 80.1 (80.0-100.0) fL MCH 25.3 (25.0-34.0) pg MCHC 31.6 L (32.0-36.0) g/dL RDW Std Deviation 53.5 H (36.4-46.3) fL RDW Coeff of Nico 18.6 H (11.5-14.5) % Plt Count 178 (130-400) K/uL MPV 12.2 (9.4-12.4) fL Reticulocyte % (Auto) 1.18 (0.50-2.00) % Reticulocyte # 0.050 (0.020-0.100) 10^6/uL Sodium 139 (136-145) mmol/L Potassium 4.0 (3.5-5.1) mmol/L Chloride 105 (98-107) mmol/L Carbon Dioxide 27 (21-32) mmol/L Anion Gap 7 (3-11) BUN 15 (6-23) mg/dl Creatinine 1.38 H (0.6-1.2) mg/dl Est Cr Clr Drug Dosing 25.5 ml/min eGFR 37.28 BUN/Creatinine Ratio 10.9 (10-20) Glucose 91 (70-99(Fasting)) mg/dl Calcium 8.2 L (8.6-10.3) mg/dl Ionized Calcium (1.12-1.32) mmol/L Phosphorus 2.5 (2.5-4.9) mg/dl Magnesium 2.0 (1.7-2.4) mg/dl Iron 68 (35-150) mcg/dl TIBC 213 L (250-450) mcg/dl Transferrin 152 L (200-360) mg/dl Transferrin % Sat 32 (15-50) % Albumin 3.1 L (3.4-5.0) gm/dl Prealbumin 8.9 L (20-40) mg/dl Vitamin B12 129 L (180-914) pg/ml Urine Color Yellow Urine Appearance Clear (Clear) Urine pH 5.5 (4.5-7.5) Ur Specific [place] 1.006 (1.000-1.030) Urine Protein Negative (Negative) Urine Glucose (UA) Negative (Negative) Urine Ketones Negative (Negative) Urine Blood Negative (Negative) Urine Nitrite Negative (Negative) Urine Bilirubin Negative (Negative) Urine Urobilinogen Negative (Negative) Ur Leukocyte Esterase 1+ H (Negative) Urine WBC (Auto) 11-20 H (0-5) /hpf Urine RBC (Auto) 0-2 (0-2) /hpf U Hyaline Cast (Auto) 0-2 (0-2) /lpf U Epithel Cells (Auto) 6-10 H (0-2) /hpf Urine Bacteria (Auto) 4+ H (None Seen) Urine Comment Fluid Neutrophils % % Fluid Lymphocytes % % Fluid Eosinophils % % Fluid Meso/Macro/[place] % % Fluid Comment Pleural Fluid Source Pleural Color Pleural Appearance Pleural WBC (Auto) /uL Pleural RBC (Auto) /uL Pleural Total Protein gm/dl Pleural Glucose mg/dl 08/01/25 08/01/25 Range/Units Unknown 18:44 WBC (4.8-10.8) K/ul RBC (4.20-5.40) M/uL Hgb (12.0-16.0) g/dL Hct (37.0-47.0) % MCV (80.0-100.0) fL MCH (25.0-34.0) pg MCHC (32.0-36.0) g/dL RDW Std Deviation (36.4-46.3) fL RDW Coeff of Nico (11.5-14.5) % Plt Count (130-400) K/uL MPV (9.4-12.4) fL Reticulocyte % (Auto) (0.50-2.00) % Reticulocyte # (0.020-0.100) 10^6/uL Sodium 137 (136-145) mmol/L Potassium 4.3 (3.5-5.1) mmol/L Chloride 103 (98-107) mmol/L Carbon Dioxide 24 (21-32) mmol/L Anion Gap 10 (3-11) BUN 14 (6-23) mg/dl Creatinine 1.44 H (0.6-1.2) mg/dl Est Cr Clr Drug Dosing 24.5 ml/min eGFR 35.42 BUN/Creatinine Ratio 9.7 L (10-20) Glucose 114 H (70-99(Fasting)) mg/dl Calcium 7.9 L (8.6-10.3) mg/dl Ionized Calcium 1.00 L (1.12-1.32) mmol/L Phosphorus (2.5-4.9) mg/dl Magnesium 2.1 (1.7-2.4) mg/dl Iron (35-150) mcg/dl TIBC (250-450) mcg/dl Transferrin (200-360) mg/dl Transferrin % Sat (15-50) % Albumin (3.4-5.0) gm/dl Prealbumin (20-40) mg/dl Vitamin B12 (180-914) pg/ml Urine Color Urine Appearance (Clear) Urine pH (4.5-7.5) Ur Specific [place] (1.000-1.030) Urine Protein (Negative) Urine Glucose (UA) (Negative) Urine Ketones (Negative) Urine Blood (Negative) Urine Nitrite (Negative) Urine Bilirubin (Negative) Urine Urobilinogen (Negative) Ur Leukocyte Esterase (Negative) Urine WBC (Auto) (0-5) /hpf Urine RBC (Auto) (0-2) /hpf U Hyaline Cast (Auto) (0-2) /lpf U Epithel Cells (Auto) (0-2) /hpf Urine Bacteria (Auto) (None Seen) Urine Comment Fluid Neutrophils % 5 % Fluid Lymphocytes % 20 % Fluid Eosinophils % 12 % Fluid Meso/Macro/[place] % 63 % Fluid Comment Pleural Fluid Source Left Lung Pleural Color Yellow Pleural Appearance Clear Pleural WBC (Auto) 293 /uL Pleural RBC (Auto) < 2000 /uL Pleural Total Protein 4.2 gm/dl Pleural Glucose 130 mg/dl Diagnostic Findings Chest X-Ray 07/31/25 09:36 XR chest 1V portable CLINICAL HISTORY: eval for cough COMPARISON STUDY: 03/29/2025 FINDINGS: There is stable cardiomegaly with mild pulmonary vascular congestion. There is a moderate to large left pleural effusion and associated consolidation at the left lower lung, increased. Right lung remains well aerated. No pneumothorax. IMPRESSION: Increased left pleural effusion and left pulmonary consolidation. ACT 112: Negative or not required by law. Electronically signed by: Tiago Vyas M.D. 07/31/2025 10:00 AM Thoracentesis/Paracentesis US 08/01/25 07:37 IR thoracentesis wo tube US CLINICAL HISTORY: effusion COMPARISON STUDY: None FINDINGS: After the procedure was discussed and questions answered, consent was obtained. Patient was positioned in the seated upright. Ultrasound demonstrated large left pleural effusion. Left back was prepped and draped in standard sterile fashion. 1% lidocaine was used for local anesthesia. Under ultrasound guidance, a standard thoracentesis catheter was advanced to the left pleural effusion. 1 L of straw-colored fluid was withdrawn and sent to the lab for analysis. Catheter was removed. Hemostasis was obtained with manual compression. Sterile dressing was applied. No pneumothorax seen on the postprocedure x-ray. IMPRESSION: Left thoracentesis as described. ACT 112: Negative or not required by law. Electronically signed by: Tiago Vyas M.D. 08/01/2025 4:15 PM Chest X-Ray 08/01/25 15:10 XR chest 1V not portable CLINICAL HISTORY: post thoracentesis COMPARISON STUDY: 07/31/2025 FINDINGS: Stable cardiomegaly with mild pulmonary vascular congestion. There is a small to moderate left pleural effusion and associated consolidation at the left lung base, improved. No pneumothorax seen. IMPRESSION: No pneumothorax seen. ACT 112: Negative or not required by law. Electronically signed by: Tiago Vyas M.D. 08/01/2025 4:11 PM Code Status & VTE Plan VTE Prophylaxis Plan VTE Prophylaxis will be ordered: Yes
[2025-08-02] MEDS: CYANOCOBALAMIN 1000 MCG/ML VIAL IM SCH (17:21)
[2025-08-02] MEDS: MIRTAZAPINE TAB 15 MG TAB PO SCH (20:45)
--- NOTE | 2025-08-02 21:05 | Communication Note ---
Date of Service: August 02, 2025 Patient with coughing fit as per RN. Evening medications and water seemed like it went down the wrong pipe as per RN. Patient sounds wet as per RN. O2 sats 90-91%. Chest x-ray as per my my interpretation left lower lobe infiltrate/effusion. AP Aspiration pneumonia Unasyn Aspiration precautions N.p.o. until seen by [facility] MATE kassidy
[2025-08-02] MEDS: IPRATROPIUM BROMIDE NEB SOLN 0.02% 0.5MG/2.5ML VIAL INH STA (21:18)
[2025-08-02] MEDS: LEVALBUTEROL 1.25 MG/3 ML NEB NEB STA (21:18)
--- NOTE | 2025-08-03 00:28 | XRay Report ---
Exam(s): XR CXR 1 VIEW EXAM: XR Chest, 1 View CLINICAL HISTORY: Reason for exam: cough. TECHNIQUE: Frontal view of the chest. COMPARISON: Prior chest x-ray from August 01, 2025. FINDINGS: Lungs: Moderate to heavy peribronchial thickening of the central lower lobe bronchi with left lower lobe infiltrate. Pleural space: Moderate left pleural effusion. No pneumothorax. Heart: Unremarkable. No cardiomegaly. Mediastinum: Unremarkable. Normal mediastinal contour. Bones/joints: Diffuse osteopenia throughout the visualized bones. No acute fracture. IMPRESSION: Unchanged left lower lobe infiltrate and pleural effusion. Electronically signed by: Dona Hunter MD 08/03/25 00:27 AM
[2025-08-03] MEDS: AMPICILLIN/SULBACTAM SOD 3,000 MG/100 ML BAG IV SCH (01:15)
[2025-08-03 07:37] LABS: Anion Gap 4.0 (3-11); Blood Urea Nitrogen 15.0 mg/dl (6-23); Calcium 8.6 mg/dl (8.6-10.3); Carbon Dioxide 29.0 mmol/L (21-32); Chloride 107.0 mmol/L (98-107); Creatinine Clr Calc Pharmacy 28.7 ml/min; Glucose 94.0 mg/dl (70-99(Fasting)); Magnesium 1.7 mg/dl (1.7-2.4); Potassium 4.4 mmol/L (3.5-5.1); Sodium 140.0 mmol/L (136-145)
--- NOTE | 2025-08-03 08:09 | Electrocardiogram Report ---
Test Reason : Blood Pressure : */* mmHG Vent. Rate : 180 BPM Atrial Rate : * BPM P-R Int : * ms QRS Dur : 64 ms QT Int : 252 ms P-R-T Axes : * 7 114 degrees QTcB Int : 436 ms Poor data quality, interpretation may be adversely affected Supraventricular tachycardia Septal infarct (cited on or before 07-Jun-2024) Abnormal ECG When compared with ECG of 07-Jun-2024 11:36, Supraventricular tachycardia has replaced Sinus rhythm Vent. rate has increased by 67 bpm Questionable change in initial forces of Anterior leads Nonspecific T wave abnormality now evident in Inferior leads Nonspecific T wave abnormality, worse in Anterolateral leads Confirmed by Hans Centeno ([id number]) on 08/03/2025 8:08:43 AM Referred By: Lele Giron Confirmed By: Hans Centeno
--- NOTE | 2025-08-03 08:12 | Electrocardiogram Report ---
Test Reason : Blood Pressure : */* mmHG Vent. Rate : 115 BPM Atrial Rate : 115 BPM P-R Int : 224 ms QRS Dur : 54 ms QT Int : 312 ms P-R-T Axes : 72 2 68 degrees QTcB Int : 431 ms Sinus tachycardia with 1st degree A-V block with Premature atrial complexes Low voltage QRS Cannot rule out Anterior infarct (cited on or before 07-Jun-2024) Abnormal ECG When compared with ECG of 07-Jun-2024 11:36, Supraventricular tachycardia has resolved Premature atrial complexes are now Present Questionable change in initial forces of Septal leads Confirmed by Hans Centeno ([id number]) on 08/03/2025 8:11:55 AM Referred By: Confirmed By: Hans Centeno
--- NOTE | 2025-08-03 11:09 | Hospitalist Progress Note ---
Date of Service August 03, 2025 Assessment & Plan (1) SVT (supraventricular tachycardia): Plan: Resolved due to severe electrolyte abnormalities (2) Recurrent left pleural effusion: (3) Hypomagnesemia: (4) Hypocalcemia: (5) Hypokalemia: (6) Severe protein-calorie malnutrition: (7) CKD stage 3b, GFR 30-44 ml/min: (8) Dementia in Alzheimer's disease with delirium: (9) Vitamin B12 deficiency: (10) Asymptomatic bacteriuria: (11) Esophageal stricture: Plan Patient 85-year-old female initially presented with SVT due to severe electrolyte abnormalities. Electrolytes have been replaced and stabilized. No further SVT Continue metoprolol Continue to encourage regular meals. Electrolytes have stabilized GI consultation recommendations reviewed, no plans for any additional procedures/EGD/imaging. Continue with lower dose PPI Events last night low suspicion for any type of aspiration pneumonitis, patient not in any distress, chest x-ray unchanged from previous. Discontinue Unasyn, restart diet Reviewed urine culture. Suspect this is most likely asymptomatic bacteriuria. Patient has had no fevers, no leukocytosis, no other symptoms relatable to UTI. Will hold off on any treatment unless patient becomes more symptomatic. Continue therapies Started B12 supplementation IM. Continue iron supplementation as directed by nephrology Case management continuing to pursue skilled rehab Behaviors were well-controlled last evening and through the night. Continue current Remeron dosing at bedtime. Delirium has improved Updated patient's via phone Admission and Anticipated Discharge Date Admission Date: July 31, 2025 Subjective Events of last evening noted. Appears minor coughing with sips of water. Patient denies any chest pain, shortness of breath, cough. On room air. Nursing reports no issues overnight. Reports that behaviors were appropriate throughout the night and that she slept. Physical Exam Physical Exam: Constitutional: Alert, frail, underweight HEENT: Mucous membranes moist. Lungs: Good clear airflow on the right, improved airflow on the left continues post thoracentesis. CV: S1-S2, regular Abdomen: Soft, nontender, nondistended Extremities: No significant edema Neuro: No focal deficits, generally weak, Psych: Cooperative, normal mood, impaired memory, impaired cognition Results & Data Results & Data Vital Signs (Past 12 Hours) Vital Signs Temp Pulse Resp BP Pulse Ox O2 Del Method O2 Flow Rate 08/03/25 07:40 36.8 C 77 18 118/70 99 Nasal Cannula 2 Diagnostic Findings Reviewed imaging, laboratory and diagnostic studies. Pertinent findings as below. Electrolytes stable Creatinine 1.23 Iron studies reviewed Vitamin B12 129 Urinalysis reviewed Personally reviewed chest x-ray from overnight, no acute changes. No evidence of aspiration pneumonia, similar in appearance to post thoracentesis chest x-ray Urine culture growing Klebsiella
--- NOTE | 2025-08-03 18:45 | Nephrology Progress Note ---
Date of Service August 03, 2025 Assessment & Plan (1) Hypocalcemia: Plan: critical hypocalcemia w/ SVT on presentation w/ presenting iCa 0.7 on 07/31. 25OH D 27 PTH 77 s/p 3 gm IV calcium w/ improvement to 0.9 gm on 07/31 Likeliest cause is PTH deficiency from critical hypomagnesemia w/ PTH inappropriately suppressed. Hypomagnesemia likely from high-dose PPI Malnutrition likely has a role in all of this; see below No need at this time to check PHTrp or 1,25 dihydroxy D On August 01 she required another 3 gm of calcium gluconate(This includes back from overnight); as well as 4 g IV magnesium and 40 mEq potassium p.o. Today her electrolytes are within normal limits >continue calcium supplements calcitriol 0.25 mcg daily and calcium carbonate 1250 mg bid >appreciate dietary evaluation to help with higher calcium/mag diets that might appeal to this pt and be affordable that she could do at home Will sign off; care reviewed w/ Dr Gasca re sign off an drecommendations below; we are in agreement , NEPH D/C RECS DX: -critical hypocalcemia, resolved -critical hypomagnesemia, resolved -CKD3B -malnutrition/weight loss 13% TBW in 11 months (Jul - Jul) -recurrent pleural effusion -SVT -worsening normocytic anemia w/ adequate iron stores and B12 deficiency s/p supplement -esophageal stenosis at GE junction on 07/2024 EGD -dementia RX: -[employer] brand Calcium 1200 mg [employer] Softgels (pls use this specific brand for most calcium with fewest pills)>> take 2 daily with food -calcitriol 0.25 mcg daily -SlowMag brand mag supplements (pls use this specific brand if able for maximum absorption and a bit more calcium), 2 tablets twice daily -protonix dose 20 mg bid and lower if able; try to avoid increasing dose; note dose timing below -no need to continue po iron at d/c as stores are replete OTHER CARE: -f/u pleural effusion w/ [facility] pulmonary Dr Yanez -f/u GEJ / esophageal stenosis>>consider barium swallow study as outpatient/inpatient to evaluate GEJ >low threshold for speech evaluation >>time PPI dose to be 2 hours away from other medications; may take other supplements together Labs weekly to be ordered by nephrology nurse under my name x 4: Ionized calcium, magnesium, phosphorus, basic metabolic panel, hemoglobin, prealbumin; please also get urinalysis with microscopy and ACR if not done within the past year in the [facility] system -minimize pill burden where possible/focus on Follow-up appointment: Hospital discharge appointment with me in 2 to 4 weeks katarzyna Julien (2) Hypomagnesemia: Plan: her mag corrected suspiciously fast >> unlikely that 2 gm IV would bring this up to supratherapeutic level of 3.2 (? if drawn while mag running) potential cause is high dose PPI use, though again hypomagnesemia to this degree is unusual w/ PPI alone no CTX w/ recent colon cancer >continue lowered PPI dose to 20 mg bid >continue slow mag 2 tabs bid; hold for > 2 BM/day -stopped MVI (3) Recurrent left pleural effusion: Plan: consider thoracentesis and cytology/cellcount/fluid analysis as IP or OP >f/u thoracentesis results (4) SVT (supraventricular tachycardia): Plan: continue cardiac monitoring; so far no recurrence (5) CKD stage 3b, GFR 30-44 ml/min: Plan: Renal function at baseline 1.2-1.3; with renal function stable despite 13% weight loss 1 year of total body weight, will check cystatin on a.m. labs tomorrow or as outpatient if she is for discharge (6) Malnutrition: Plan: Suspect this underlies at least some of her electrolyte issues 13% total body weight loss in the past 11 months 2023 EGD with moderate GEJ stenosis and pathology with inflammation but no malignancy or metaplasia/dysplasia>> may be contributing to weight loss if progressed Albumin 2.9 on August 01 presentation > Ordered prealbumin > 8.9 (20-40) >suggest barium swallow study as inpatient or outpatient Admission and Anticipated Discharge Date Admission Date: July 31, 2025 Subjective No acute interval events clinically. Mental status is somewhat improved although still some confusion. No shortness of breath no swelling no uncontrolled pain. Tells me she is eating but she cannot Review of Systems 2 Review of Systems: All systems reviewed & are unremarkable except as noted in Subjective Physical Exam 2 Constitutional: well developed, + thin, + frail appearing and cooperative; no acute distress Eyes: EOM intact bilaterally ENMT: Mouth: + dry oral mucous membranes Respiratory: normal respiratory effort Auscultation: + diminished lung sounds Cardiovascular: Rate/Rhythm: regular rate and regular rhythm Extremities: n o edema Gastrointestinal (Abdomen): Inspection/Auscultation: normal bowel sounds P ercussion/Palpation: abdomen soft; abdomen nontender Musculoskeletal: Extremities: strength 5/5 throughout Skin: no rashes, warm and dry Results & Data Vital Signs (Past 12 Hours) Vital Signs Temp Pulse Resp BP Pulse Ox O2 Del Method O2 Flow Rate 08/03/25 15:26 37.0 C 91 H 18 124/75 97 Room Air 08/03/25 07:40 36.8 C 77 18 118/70 99 Nasal Cannula 2 Laboratory Results 08/02/25 06:20 08/03/25 04:44 Calcium magnesium and phosphorus all within normal limits today
[2025-08-03 23:08] VITALS: RESP 18
[2025-08-04 06:57] LABS: Hematocrit (blood only) 27.9 % (37.0-47.0); Hemoglobin 8.7 g/dL (12.0-16.0); Mean Corpuscular Hemoglobin 25.3 pg (25.0-34.0); Mean Corpuscular Volume 81.1 fL (80.0-100.0); Platelet Count 193 K/uL (130-400); RDW Standard Deviation 55.0 fL (36.4-46.3); Red Blood Count 3.44 M/uL (4.20-5.40); White Blood Count 7.48 K/ul (4.8-10.8)
[2025-08-04 07:11] VITALS: BP 122/75; PULSE 87; TEMP 97.5; O2SAT 94
[2025-08-04 07:36] LABS: Anion Gap 7.0 (3-11); Blood Urea Nitrogen 17.0 mg/dl (6-23); Calcium 9.1 mg/dl (8.6-10.3); Carbon Dioxide 26.0 mmol/L (21-32); Chloride 107.0 mmol/L (98-107); Creatinine Clr Calc Pharmacy 30.4 ml/min; Glucose 123.0 mg/dl (70-99(Fasting)); Magnesium 1.6 mg/dl (1.7-2.4); Potassium 4.4 mmol/L (3.5-5.1); Sodium 140.0 mmol/L (136-145)
[2025-08-04] MEDS: MAGNESIUM SULFATE / D5W 1 GM/100 ML BAG IV SCH (08:58)
--- NOTE | 2025-08-04 11:41 | Discharge Summary ---
Discharge Summary Date of Service August 04, 2025 Principal Dx & Hospital Course #1 = Principal Diagnosis (1) SVT (supraventricular tachycardia): Resolved due to severe electrolyte abnormalities (2) Recurrent left pleural effusion: (3) Hypomagnesemia: (4) Hypocalcemia: (5) Hypokalemia: (6) Severe protein-calorie malnutrition: (7) CKD stage 3b, GFR 30-44 ml/min: (8) Dementia in Alzheimer's disease with delirium: (9) Vitamin B12 deficiency: (10) Asymptomatic bacteriuria: (11) Esophageal stricture: (12) Hypothyroid: Plan Patient 85-year-old female presented to the emergency room After she had outpatient laboratory studies that showed significant electrolyte abnormalities. In the emergency room also noted to be in a narrow complex tachycardia consistent with SVT. Patient also was noted to have a large left pleural effusion this is recurrent and has required thoracentesis previously. Laboratory testing on pleuritic fluid was unremarkable and benign. Patient was admitted to the hospital. Her electrolytes were were repleted. Her SVT resolved. She was started on metoprolol. Cardiology consultation was obtained. Echocardiogram was performed and recommended continue metoprolol. The patient was requiring some oxygen. It was felt that her hypoxia was most likely due to the pleural effusion. Patient underwent thoracentesis here in the hospital. 1.2 L were removed. Repeat testing on the pleural fluid including pathology was negative for any malignancy. On further history patient has extremely poor appetite for many months. Most likely her significant electrolyte abnormalities are due to poor oral intake. Here in the hospital was seen by dietary and was actually eating quite well. She also had some issues with some delirium. Definitely has some dementia which was confirmed by family. Family reports that she has gone irritable in the evenings and definitely has issues remembering some things. I also noted that her TSH was significantly elevated here in the hospital. She was started on Synthroid. This may be contributing to some of her delirium/dementia and may help with treatment with the Synthroid. Nephrology consultation was obtained due to her significant laboratory abnormalities and they assisted with electrolyte replacement. Patient had a previous history of esophageal stricture approximately 18 months ago. GI consultation was obtained to evaluate as this potential source for her poor oral intake. They did not feel she was a candidate for any repeat endoscopy. Patient was eating and swallowing well with us soft bite sized diet. I suspect her poor oral intake is more attributable to dementia than the esophageal stricture. In a monitored setting where she is encouraged to eat and drink regularly she has done well. She is seen by therapies. They recommended rehabilitation. Case management was involved in her care. They help coordinate transfer to [facility]. To us to address her dementia/nighttime delirium her Remeron dose was transition from morning dose to an evening dose and the dose increased. She responded this well and her behaviors were well controlled subsequently. On the day of discharge she did require some additional IV magnesium. She will continue oral magnesium supplementation as well as calcium supplementation. Her other laboratory studies were stabilized. She could continue her rehabilitation at [facility]. Notes For Next Care Provider Monitor electrolytes and renal function intermittently Check TSH in 4 to 6 weeks, may need further titration of Synthroid, new start this hospitalization Consider continuing B12 injections weekly to monthly versus oral supplementation Medication Changes From Visit Metoprolol added Electrolyte supplements Protonix decreased, possible source of low magnesium Synthroid, new diagnosis hypothyroidism Admission HPI Per Admitting Provider 85-year-old lady with PMH of multiple thyroid nodules, HLD, lung granuloma, left pleural effusion, CAD, HTN, left atrial dilatation, CKD stage IIIb, SNHL, anemia due to stage III CKD, colon cancer status post resection and stoma creation followed by reversal ( stage II cancer, needed no chemo and radiation per pt] presents today via referral of outpatient office for note of low calcium level in the outpatient blood lab. Patient was noted to be in narrow complex tachy with heart rate in 180s at presentation, improved to sinus rhythm with heart rate in 90s with IV fluid and did not need metoprolol at ED. ER physician was endorsed with cardiology. Patient reports in general her appetite is poor and has been even poorer since her colon cancer surgery in August 2024. patient denies any diarrhea or loose stools. 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 Patient denies fever, reports usual cough/no mucus, denies sore throat/chest pain/palpitation. Patient reports no acute changes in her bowel or bladder habit. Patient does not use oxygen at home. Patient does report shortness of breath with exertion since colon cancer surgery. Patient reports she follows with pulmonology as an outpatient for left-sided pleural effusion, she states she underwent pleural tap in May 2025 and it was negative for cancer, since it reaccumulated they had another pleural tap scheduled for August 14. Patient denies any other medication changes. Patient reports quitting smoking 2014, denies alcohol and recreational drug use. Medications reviewed with the patient and her at bedside. Plan of care discussed with them in detail, they voiced understanding and agre eable to plan of care. Admission Exam Per Admitting Provider See H&P Discharge Exam Constitutional: Alert, frail, underweight HEENT: Mucous membranes moist. Lungs: Clear to auscultation, decreased, no wheezes rales or rhonchi CV: S1-S2, regular Abdomen: Soft, nontender, nondistended Extremities: No significant edema Neuro: No focal deficits, impaired memory and cognition Psych: Cooperative, normal mood Updated Medication List Medication Instructions Recorded Confirmed Type acetaminophen 325 mg tablet 650 mg (2 x 325 mg) PO Q4H PRN 08/04/25 Rx fever or pain #100 tabs atorvastatin 40 mg tablet 40 mg PO DAILY #30 tabs 08/04/25 Rx calcitriol 0.25 mcg capsule 0.25 mcg PO DAILY@0800 #30 caps 08/04/25 Rx calcium carbonate 500 mg PO BID@0800,2000 #60 tabs 08/04/25 Rx ferrous sulfate 325 mg (65 mg 325 mg PO DAILY #30 tabs 08/04/25 Rx iron) tablet (FeroSul) levothyroxine 25 mcg tablet 25 mcg PO DAILYBB #30 tabs 08/04/25 Rx (Synthroid) magnesium chloride 64 mg 64 mg PO TID #90 tabs 08/04/25 Rx (magnesium chloride) tablet,delayed release (Mag 64) metoprolol tartrate 25 mg tablet 12.5 mg (1/2 x 25 mg) PO BID #60 08/04/25 Rx tabs mirtazapine 15 mg tablet 30 mg (2 x 15 mg) PO HS #60 tabs 08/04/25 Rx pantoprazole 40 mg tablet,delayed 20 mg (1/2 x 40 mg) PO 08/04/25 Rx release BID@1000,2200 #60 tabs Hospital Stay Data Consultations 07/31/25 09:48 Consult Cardiology Stat 07/31/25 10:58 ED Decision to Admit Stat 07/31/25 14:00 Consult Nephrology Routine 08/02/25 11:04 Consult Gastroenterology Routine Diagnostic Imagining Performed 08/01/25 07:37 IR thoracentesis wo tube US Routine Reviewed imaging, laboratory and diagnostic studies. Pertinent findings as below. Echocardiogram showed ejection fraction 55 to 59%, dilated atrium, calcified mitral valve, no evidence of pulmonary hypertension WBC 7.4 Hemoglobin 8.7, stable Platelets of 193 Sodium 140 Potassium 4.4 Chloride 107 Carbon oxide 26 Creatinine 1.16 Calcium 9.1 Magnesium 1.6, replaced prior to discharge Iron 68 TIBC 213 Trans ferritin 152 Percent sat 32 Vitamin B12 129 TSH 12.3 PTH 77.1 Respiratory viral panel negative Urine culture growing Klebsiella that is pansensitive, however patient had no symptoms related to urinary tract infection suspect this is asymptomatic bacteriuria. Pending Results Patient Have Any Pending Studies at Discharge: No Discharge Instructions Given to Patient (Per Discharging Provider) Continue to work with therapy Continue to eat regularly with supplemental protein shakes Monitor your electrolytes You may need recurrent thoracentesis Total Time Total Time Spent Total Time Spent (In Minutes): 40
== END 2025-08-04 11:17 | DRG 640 ==
LOC: ED 09:21 → SUATTDRO 12:15 → EDINP 12:15 → 2S 14:26 → 3W 08-02 16:02